=== PATIENT | female | born 1985 | race Caucasian/White ===

== ENCOUNTER 2022-03-14 08:46 | Outpatient (REF) | payer BC, SELFPAY ==
[2022-03-14 11:43] LABS: Mean Corpuscular HGB Conc 33.3 g/dl (31.0-35.0); Mean Corpuscular Hemoglobin 30.2 pg (27.0-33.0); Mean Corpuscular Volume 90.7 fL (80.0-98.0); Mean Platelet Volume 10.8 fL (9.4-12.3); Platelet Count 214 X10*3/uL (160-400); Red Cell Distribution Width 12.4 % (11.0-16.0); White Blood Count 4.8 X10*3/uL (4.8-10.8)
[2022-03-14 12:18] LABS: Alanine Aminotransferase 10 U/L (0-31); Albumin Level 4.3 g/dL (3.5-5.0); Alkaline Phosphatase 45 U/L (39-117); Anion Gap 14 (12-20); Aspartate Amino Transferase 15 U/L (5-31); Bilirubin Total 0.6 mg/dL (0.0-1.0); Blood Urea Nitrogen 15 mg/dL (9-16); Calcium 9.5 mg/dL (8.4-10.2); Carbon Dioxide 26 mmol/L (22-29); Chloride 105 mmol/L (96-108); Cholesterol 176 mg/dL; Estimated Glomerular Filt Rate > 60; Glucose Fasting 88 mg/dL (60-99); HDL Cholesterol 63 mg/dL; LDL Cholesterol Calculated 101 mg/dl; Potassium 4.6 mmol/L (3.3-5.1); Sodium 140 mmol/L (135-145); TSH reflex Free T4 1.32 uIU/mL (0.32-4.0); Total Protein 6.7 g/dL (6.5-8.0); Triglycerides 64 mg/dL
== END 2022-03-14 08:47 | disposition home or self-care (01) ==
LOC: HO.HMGCLDS 08:46
PROVIDERS: PCP Nurse Practitioner Family; Visit Provider Nurse Practitioner Family
DX: Z00.00 Encounter for general adult medical examination without abnormal findings (principal)
CPT/HCPCS: 36415; 80053; 80061; 84443; 85027

== ENCOUNTER 2022-06-23 09:28 | Outpatient (REF) | payer BC, SELFPAY ==
[2022-06-23 17:06] LABS: CT PCR NOT DETECTED (Not Detect.); NG PCR NOT DETECTED (Not Detect.)
[2022-06-24 11:40] LABS: BV Int Neg Control Negative (Negative); BV Int Pos Control Positive (Positive)
[2022-06-30 09:23] LABS: HPV mRNA E6/E7 rflx Not Detected (Not Detected)
== END 2022-06-23 09:29 | disposition home or self-care (01) ==
LOC: HO.LNP 09:28
PROVIDERS: PCP Nurse Practitioner Family; Visit Provider Advanced Practice Midwife
DX: Z01.419 Encounter for gynecological examination (general) (routine) without abnormal findings (principal); Z11.51 Encounter for screening for human papillomavirus (HPV); Z20.2 Contact with and (suspected) exposure to infections with a predominantly sexual mode of transmission
CPT/HCPCS: 0353U; 87480; 87510; 87624; 87660; 88142

== ENCOUNTER 2023-03-14 08:27 | Outpatient (AMB) | payer BC, SELFPAY ==
[2023-03-14 08:31] VITALS: BP 106/60; PULSE 71; RESP 13; TEMP 36.2; O2SAT 99; BMI 23.3
--- NOTE | 2023-03-14 08:31 | A.OFFPC_ITS ---
Vital Signs 03/14/23 08:31 Height 5 ft 1 in Weight 123 lb 2 oz BMI 23.3 BP 106/60 Blood Pressure Location Rt brachial Position Sitting Respiration 13 Pulse 71 Pulse Source Pulse Oximeter Temp 97.2 F Temp Source Temporal Artery Scan Pulse Oximetry (%) 99 Oxygen Delivery Method Room Air Intake Visit Reasons: CPE [place] Specialist Required: No Accompanied by: Self / Same As Patient Allergies No Known Allergies Allergy (Verified 03/14/23 08:38) N.K.D.A. Allergy (Unknown, Uncoded 03/14/23 08:38) Unknown Medication List - Last Reconciled 03/14/23 by Carmen Britt CNP No Known Home Meds Tobacco use date assessed: 03/14/23 Dental Screening Dental Screen Date: 03/14/23 Did you have a dental visit in the last 12 months?: Yes Did you have a dental problem in the last 6 months where you did not have access to dental care?: No Was dental information given to patient?: Patient has dentist HPI HPI Comments History of Present Illness Details 37-year-old female presents for an exten ded physical exam She has no significant past medical history She has not on prescription medications She reports significant anxiety symptoms. She notes that I have had anxiety my whole life. She worries a lot about her children and job performance. She feels overwhelmed with work and family life. She feels that her children may be better off if were . She became tearful during the interview. She denies suicidal or homicidal ideation or active suicide plan. She notes that she has reported anxiety symptoms to many doctors and was told her symptoms were normal. She has no history of counseling or taking psychotropic medications. She is never formally been diagnosed with anxiety or depression. 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 1. Little interest or pleasure in doing things: more than half the days 2. Feeling down, depressed, or hopeless: more than half the days 3. Trouble falling or staying asleep, or sleeping too much: nearly every day 4. Feeling tired or having little energy: nearly every day 5. Poor appetite or overeating: nearly every day 6. Feeling bad about yourself - or that you are a failure or have let yourself or your family down: nearly every day 7. Trouble concentrating on things, such as reading the newspaper or watching television: nearly every day 8. Moving or speaking so slowly that other people could have noticed. Or the opposite - being so fidgety or restless that you have been moving around a lot more than usual: nearly every day 9. Thoughts that you would be better off or of hurting yourself in some way: more than half the days Total score: 24 Depression Screening Interpretation: Positive Depression Screening Follow-up: New Medication prescribed and Community Mental Health Worker F/U Depression Screening Done: Yes 60986 - PHQ-9 Billing: Yes Source: Developed by Drs. Iban Potter, Geeta Chan, Jean Claude Richardson and colleagues, with an educational facundo from [employer]. Thrive Questionnaire Date Thrive assessed: 03/14/23 I am a: Patient What is your living situation today?: I have a steady place to live Within the past 12 months, did the food you bought not last and you didn't have the money to get more?: Never true Within the past 12 months, did you worry whether your food would run out before you got money to buy more?: Never true Do you have trouble paying for medicines?: No Do you have trouble getting transportation to medical appointments?: No Do you have trouble paying your heating and electricity bill?: No Do you have trouble taking care of your child, family member or friend?: No Do you have trouble with day-to-day activities such as bathing, preparing meals, shopping, managing finances, etc.?: No Are you currently unemployed and looking for a job?: No Are you interested in more education?: No Please select the resources that you would like help with: None Currently or been in a relationship where the following occur: no concerns reported THRIVE Score: 0 AUDIT C Alcohol Use Questionnaire (AUDIT-C) 1. How often do you have a drink containing alcohol?: Monthly or less 2. How many drinks containing alcohol do you have on a typical day when you are drinking?: 1 or 2 3. How often do you have six or more drinks on one occasion?: Never Total Score: 1 PEE-7 AMB Questionnaire PEE-7 Date PEE - 7 assessed: 03/14/23 Feeling nervous, anxious, or on edge: 3 = Nearly every day Not being able to stop or control worryin = Nearly every day Worrying too much about different things: 3 = Nearly every day Trouble relaxin = Nearly every day Being so restless that it is hard to sit still: 2 = More than half the days Becoming easily annoyed or irritable: 3 = Nearly every day Feeling afraid as if something awful might happen: 2 = More than half the days Total PEE-7 score (0-4 normal; 5-9 mild; 10-14 moderate; 15-21 severe): 19 Source: Developed by Drs. Iban Potter, Geeta Chan, Jean Claude Richardson and colleagues, with an educational facundo from [employer]. PEE-7 Assessment Billing PEE-7 Assessment Tool: PEE-7 Assessment 69902 Review of Systems Const Details: Const Denies chills, Denies fatigue, Denies fever(s), Denies headache(s) and Denies weakness ENT Denies dizziness and Denies headache(s) Card Denies chest pain, Denies lightheadedness, Denies dyspnea and Denies other (Palpitations) Resp Denies cough, Denies dyspnea, Denies wheezing and Denies other ( shortness of breath) GI Denies abdominal pain, Denies melena, Denies hematochezia, Denies change in bowel habits, Denies dyspepsia and Denies nausea Denies hematuria and Denies dysuria Musc Denies abnormal gait, Denies myalgias, Denies arthralgias, Denies numbness and Denies tingling Skin/Breast Denies rash, Denies unusual bruising and Denies wounds Neuro Denies abnormal gait, Denies dizziness, Denies headache(s), Denies memory loss, Denies numbness, Denies Sensory deficit (Neuro), Denies tingling and Denies weakness Psych Reports anxiety, Denies depression, Denies memory loss Endo Denies cold intolerance, Denies fatigue, Denies heat intolerance, Denies polydipsia and Denies polyuria Aller/Immun Denies wheezing Physical exam (Primary Care) Vital Signs: Last Vital Signs Temp 97.2 F 03/14/23 08:31 Pulse 71 03/14/23 08:31 Resp 13 03/14/23 08:31 BP 106/60 03/14/23 08:31 Pulse Ox 99 03/14/23 08:31 Oxygen Delivery Method Room Air 03/14/23 08:31 BMI result Body Mass Index 23.3 Tobacco/Smoking Status: Tobacco use Status Tobacco use date assessed 03/14/23 03/14/23 08:40 Patient Tobacco Use Status Former Tobacco user 03/14/23 08:40 Tobacco use type Cigarette 03/14/23 08:40 e-Cigarette/Vaping Use Never Used 03/14/23 08:40 PHQ-9: PHQ-9 Score PHQ-9: Total score 03/14/23 09:11 Depression Screening Interpretation: Positive Depression Screening Follow-up: New Medication prescribed and Community Mental Health Worker F/U Thrive Assessment: Date of Thrive Assessment Date Thrive assessed 03/14/23 03/14/23 08:40 Currently or been in a relationship where the following occur: no concerns reported Const Other: General: no acute distress and well developed Nutritional Appearance: well nourished Orientation/consciousness: patient oriented x3 HENMT Head: Yes normocephalic and Yes atraumatic Eyes General: appearance normal, both eyes and all related structures Pupils: Equal, round and reactive pupils present EOM: EOMs intact bilaterally Resp Effort & Inspection: normal respiratory effort Auscultation: clear to auscultation bilaterally Cardio Rate: regular rate Rhythm: regular rhythm Heart sounds: S1 normal heart sound present, S2 normal heart sound present, no gallops, no murmurs and no rubs GI Palpation (GI): No Abdominal aortic bruit present, Soft to palpation, nontender, No hepatosplenomegaly present and No Rebound tenderness present Auscultation: normal bowel sounds General: Yes no CVA tenderness Back/Spine/Pelvis Back: no CVA tenderness Cervical Spine: cervical ROM normal and No Cervical spine tenderness Thoracic/Lumbar Spine: thoraco-lumbar ROM normal, No pain with thoraco-lumbar ROM, No thoracic spinal tenderness and No lumbar spinal tenderness Extrem General: Yes normal to inspection, No edema and No calf tenderness Skin General: warm and dry. Normal skin color. Normal skin turgor Neuro General: patient oriented x3, gait normal and no focal neuro deficit Cranial nerves: Yes Equal, round and reactive pupils present Cognition (Neuro): normal cognition Gait exam (Neuro): Normal gait present Sensory Exam: No Sensory deficit (Neuro) Psych Appearance: grossly normal, tearful Affect: normal affect Speech: normal Attitude: cooperative Thought process: Normal thought process present Cognition: a+ox4 Assessment and Plan Assessment & Plan (1) Anxiety and depression: Code(s): F41.9 - Anxiety disorder, unspecified; F32.A - Depression, unspecified Plan: significant anxiety symptoms PHQ-9 and PEE-7 scores revealed severe depression and anxiety Fluoxetine 20 mg daily ordered. Take as prescribed Routine exercise encouraged She met with the community navigator who would refer her to a therapist Follow-up in 2 weeks or return sooner with worsening or new symptoms Advised to go to the ED with suicidal or homicidal ideation Verbalized understanding and agreed with treatment Complete physical exam deferred at this time (2) Laboratory tests ordered as part of a complete physical exam (CPE): Code(s): Z00.00 - Encounter for general adult medical examination without abnormal findings Plan: Fasting labs ordered in preparation of a complete physical exam. Advised to fast for at least 10 hours before getting labs drawn. May drink water Verbalized understanding and agreed with treatment plan. Orders: Orders Complete Blood Count Auto Diff Today Z00.00 - Encounter for general adult medical examination without abnormal findings Lipid Panel Today Z00.00 - Encounter for general adult medical examination without abnormal findings UA CC w/rflx Micro + Cult Today Z00.00 - Encounter for general adult medical examination without abnormal findings Comprehensive [place]. Panel Fast Today Z00.00 - Encounter for general adult medical examination without abnormal findings TSH reflex Free T4 Today Z00.00 - Encounter for general adult medical examination without abnormal findings Medications: New fluoxetine 20 mg PO DAILY 30 days 30 tabs 3RF Coding Level of Care Code Est Pt Level 4 (58905) Diagnoses Anxiety and depression F41.9; F32.A Laboratory tests ordered as part of a complete physical exam (CPE) Z00.00 Additional Codes PEE-7 Assessment Billing - PEE-7 Assessment Tool: PEE-7 Assessment 27575 ([id number])
== END 2023-03-14 09:17 | disposition home or self-care (01) ==
PROVIDERS: Visit Provider Nurse Practitioner Family
DX: F41.9 Anxiety disorder, unspecified (principal); F32.A Depression, unspecified
CPT/HCPCS: 96127; 99214

== ENCOUNTER 2023-03-28 16:13 | Outpatient (AMB) | payer BC, SELFPAY ==
[2023-03-28 16:17] VITALS: BP 108/60; PULSE 96; RESP 13; TEMP 36.4; O2SAT 99; BMI 23.1
--- NOTE | 2023-03-28 16:17 | A.OFFPC_ITS ---
Vital Signs 03/28/23 16:17 Height 5 ft 1 in Weight 122 lb 8 oz BMI 23.1 BP 108/60 Blood Pressure Location Rt brachial Position Sitting Respiration 13 Pulse 96 Pulse Source Pulse Oximeter Temp 97.6 F Temp Source Temporal Artery Scan Pulse Oximetry (%) 99 Oxygen Delivery Method Room Air Intake Visit Reasons: 2 wks anxiety, depression Line Up Examiner Required: No Accompanied by: Self / Same As Patient Allergies No Known Allergies Allergy (Verified 03/28/23 16:23) N.K.D.A. Allergy (Unknown, Uncoded 03/28/23 16:23) Unknown Medication List - Last Reconciled 03/28/23 by Carmen Britt CNP fluoxetine 20 mg PO DAILY 30 days Tobacco use date assessed: 03/14/23 Dental Screening Dental Screen Date: 03/28/23 Did you have a dental visit in the last 12 months?: Yes Did you have a dental problem in the last 6 months where you did not have access to dental care?: No Was dental information given to patient?: Patient has dentist HPI HPI Comments History of Present Illness Details 37-year-old female presents for anxiety and depression follow-up She was started on fluoxetine 2 weeks ago. She admits to taking her medication as prescribed without adverse reactions She notes she has not noticed and improvement with the fluoxetine. However, her symptoms have not worsened She states that she feels a little better now that she has a week break from school She notes that she has been walking at least twice weekly. 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 1. Little interest or pleasure in doing things: more than half the days 2. Feeling down, depressed, or hopeless: more than half the days 3. Trouble falling or staying asleep, or sleeping too much: nearly every day 4. Feeling tired or having little energy: nearly every day 5. Poor appetite or overeating: nearly every day 6. Feeling bad about yourself - or that you are a failure or have let yourself or your family down: nearly every day 7. Trouble concentrating on things, such as reading the newspaper or watching television: nearly every day 8. Moving or speaking so slowly that other people could have noticed. Or the opposite - being so fidgety or restless that you have been moving around a lot more than usual: not at all 9. Thoughts that you would be better off or of hurting yourself in some way: not at all Total score: 19 Depression Screening Interpretation: Positive Depression Screening Follow-up: Existing condition, In treatment and New Medication prescribed Depression Screening Done: Yes 07904 - PHQ-9 Billing: Yes Source: Developed by Drs. Iban Potter, Jean Claude Moss and colleagues, with an educational facundo from [employer]. Thrive Questionnaire Date Thrive assessed: 03/14/23 PEE-7 AMB Questionnaire PEE-7 Date PEE - 7 assessed: 03/28/23 Feeling nervous, anxious, or on edge: 2 = More than half the days Not being able to stop or control worryin = Nearly every day Worrying too much about different things: 2 = More than half the days Trouble relaxin = More than half the days Being so restless that it is hard to sit still: 1 = Several days Becoming easily annoyed or irritable: 3 = Nearly every day Feeling afraid as if something awful might happen: 3 = Nearly every day Total PEE-7 score (0-4 normal; 5-9 mild; 10-14 moderate; 15-21 severe): 16 Source: Developed by Drs. Iban Potter, Jean Claude Moss and colleagues, with an educational facundo from [employer]. Review of Systems Const Details: Const Denies chills, Denies fatigue, Denies fever(s), Denies headache(s) and Denies weakness ENT Denies dizziness and Denies headache(s) Card Denies chest pain, Denies lightheadedness, Denies dyspnea and Denies other (Palpitations) Resp Denies cough, Denies dyspnea, Denies wheezing and Denies other ( shortness of breath) GI Denies abdominal pain, Denies melena, Denies hematochezia, Denies change in bowel habits, Denies dyspepsia and Denies nausea Denies hematuria and Denies dysuria Musc Denies abnormal gait, Denies myalgias, Denies arthralgias, Denies numbness and Denies tingling Skin/Breast Denies rash, Denies unusual bruising and Denies wounds Neuro Denies abnormal gait, Denies dizziness, Denies headache(s), Denies memory loss, Denies numbness, Denies Sensory deficit (Neuro), Denies tingling and Denies weakness Psych Reports anxiety, Reports depression, Denies memory loss Endo Denies cold intolerance, Denies fatigue, Denies heat intolerance, Denies polydipsia and Denies polyuria Aller/Immun Denies wheezing Physical exam (Primary Care) Vital Signs: Last Vital Signs Temp 97.6 F 03/28/23 16:17 Pulse 96 03/28/23 16:17 Resp 13 03/28/23 16:17 BP 108/60 03/28/23 16:17 Pulse Ox 99 03/28/23 16:17 Oxygen Delivery Method Room Air 03/28/23 16:17 BMI result Body Mass Index 23.1 Tobacco/Smoking Status: Tobacco use Status Tobacco use date assessed 03/14/23 03/28/23 16:24 Patient Tobacco Use Status Former Tobacco user 03/28/23 16:24 Tobacco use type Cigarette 03/28/23 16:24 e-Cigarette/Vaping Use Never Used 03/28/23 16:24 PHQ-9: PHQ-9 Score PHQ-9: Total score 19 03/28/23 16:25 Depression Screening Interpretation: Positive Depression Screening Follow-up: Existing condition, In treatment and New Medication prescribed Thrive Assessment: Date of Thrive Assessment Date Thrive assessed 03/14/23 03/28/23 16:24 Const Other: General: no acute distress and well developed Nutritional Appearance: well nourished Orientation/consciousness: patient oriented x3 HENPA Head: Yes normocephalic and Yes atraumatic Eyes General: appearance normal, both eyes and all related structures Pupils: Equal, round and reactive pupils present EOM: EOMs intact bilaterally Resp Effort & Inspection: normal respiratory effort Auscultation: clear to auscultation bilaterally Cardio Rate: regular rate Rhythm: regular rhythm Heart sounds: S1 normal heart sound present, S2 normal heart sound present, no gallops, no murmurs and no rubs GI Palpation (GI): No Abdominal aortic bruit present, Soft to palpation, nontender, No hepatosplenomegaly present and No Rebound tenderness present Auscultation: normal bowel sounds General: Yes no CVA tenderness Back/Spine/Pelvis Back: no CVA tenderness Cervical Spine: cervical ROM normal and No Cervical spine tenderness Thoracic/Lumbar Spine: thoraco-lumbar ROM normal, No pain with thoraco-lumbar ROM, No thoracic spinal tenderness and No lumbar spinal tenderness Extrem General: Yes normal to inspection, No edema and No calf tenderness Skin General: warm and dry. Normal skin color. Normal skin turgor Neuro General: patient oriented x3, gait normal and no focal neuro deficit Cranial nerves: Yes Equal, round and reactive pupils present Cognition (Neuro): normal cognition Gait exam (Neuro): Normal gait present Sensory Exam: No Sensory deficit (Neuro) Psych Appearance: grossly normal Affect: normal affect Attitude: cooperative Thought process: Normal thought process present Assessment and Plan Assessment & Plan (1) Anxiety and depression: Code(s): F41.9 - Anxiety disorder, unspecified; F32.A - Depression, unspecified Plan: No improvement or worsening of symptoms with current treatment regimen PHQ-9 and PEE-7 scores revealed moderately severe depression and severe anxiety respectively Buspirone 7.5 mg twice daily ordered. Take as prescribed Continue to take fluoxetine 20 mg daily Routine exercise encouraged Follow-up in 2 weeks or return sooner with worsening or new symptoms Verbalized understanding and agreed with treatment plan Medications: New buspirone 7.5 mg PO BID 30 days 60 tabs 2RF Coding Level of Care Code Est Pt Level 3 (98581) Diagnoses Anxiety and depression F41.9; F32.A
== END 2023-03-28 16:40 | disposition home or self-care (01) ==
PROVIDERS: PCP Nurse Practitioner Family; Visit Provider Nurse Practitioner Family
DX: F41.9 Anxiety disorder, unspecified (principal); F32.A Depression, unspecified
CPT/HCPCS: 99213

== ENCOUNTER 2023-03-29 07:04 | Outpatient (REF) | payer BC, SELFPAY ==
[2023-03-29 11:15] LABS: MANUAL DIFF FLAG NO
[2023-03-29 11:23] LABS: Appearance Urine Turbid; Color Urine Yellow; Glucose Urine UA Negative (Negative); Leukocyte Esterase Urine Trace (Negative); Nitrite Urine Negative (Negative); PH 5.5 (5.0-9.0); Specific Gravity - Urine 1.025 (1.005-1.025); UMIC TRIGGER UACC YES; Urine Blood Negative (Negative); Urine Ketones Negative (Negative); Urine Protein Negative (Neg-Trace)
[2023-03-29 11:28] LABS: Basophils Percent Auto 0.9 % (0-2); Eosinophils Absolute Auto 0.1 X10*3/uL (0.0-0.4); Eosinophils Percent Auto 1.1 % (0-4); Hematocrit 38.8 % (37.0-47.0); Hemoglobin 12.8 g/dl (12.0-16.0); Imm Gran Abs Auto 0.01 X10*3/uL (0.00-0.03); Imm Gran Pct Auto 0.2 % (0.0-0.4); Lymphocytes Absolute Auto 1.3 X10*3/uL (1.2-4.9); Lymphocytes Percent Auto 27.7 % (20-40); Mean Corpuscular Volume 90.9 fL (80.0-98.0); Mean Platelet Volume 10.5 fL (9.4-12.3); Monocytes Absolute Auto 0.3 X10*3/uL (0.1-1.2); Neutrophils Percent Auto 64.1 % (45-73); Platelet Count 213 X10*3/uL (160-400); Red Blood Count 4.27 X10*6/uL (4.20-5.50); Red Cell Distribution Width 12.3 % (11.0-16.0); White Blood Count 4.7 X10*3/uL (4.8-10.8)
[2023-03-29 11:35] LABS: Bacteria Urine None Seen (None Seen); Hyaline Casts Urine 0-2 /LPF (0-2); WBC Urine 0-5 /HPF (0-5)
[2023-03-29 11:36] LABS: RBC Urine 0-2 /HPF (0-2)
[2023-03-29 11:41] LABS: Alanine Aminotransferase 9 U/L (0-31); Albumin Level 3.9 g/dL (3.5-5.0); Alkaline Phosphatase 42 U/L (39-117); Anion Gap 10 (12-20); Aspartate Amino Transferase 13 U/L (5-31); Bilirubin Total 0.4 mg/dL (0.0-1.0); Blood Urea Nitrogen 16 mg/dL (9-16); Calcium 8.9 mg/dL (8.4-10.2); Carbon Dioxide 28 mmol/L (22-29); Chloride 107 mmol/L (96-108); Cholesterol 172 mg/dL (<200); Estimated Glomerular Filt Rate > 60; Glucose Fasting 97 mg/dL (60-99); HDL Cholesterol 65 mg/dL (>40); LDL Cholesterol Calculated 98 mg/dL (<100); Potassium 4.2 mmol/L (3.3-5.1); Sodium 141 mmol/L (135-145); Total Protein 6.5 g/dL (6.5-8.0); Triglycerides 49 mg/dL (<150)
[2023-03-29 12:00] LABS: TSH reflex Free T4 1.62 uIU/mL (0.32-4.0)
== END 2023-03-29 07:05 | disposition home or self-care (01) ==
LOC: HO.HMGCLDS 07:04
PROVIDERS: PCP Nurse Practitioner Family; Visit Provider Nurse Practitioner Family
DX: Z00.00 Encounter for general adult medical examination without abnormal findings (principal)
CPT/HCPCS: 36415; 80053; 80061; 81001; 84443; 85025

== ENCOUNTER 2023-04-06 08:41 | Outpatient (AMB) | payer BC, SELFPAY ==
--- NOTE | 2023-04-06 09:18 | AM.OFFWIN_ITS ---
Intake Vital Signs 04/06/23 09:19 Weight 122 lb BP 100/68 Blood Pressure Location Lt brachial Position Sitting Pulse 54 Pulse Source Pulse Oximeter Pulse Oximetry (%) 99 Oxygen Delivery Method Room Air Intake Visit Reasons: EP LT eye ?[place] Intake Note: Patient here for possible pink eye of left eye, pt states she woke up today with it discharge in eye. Patient Tobacco Use Status: Former Tobacco user Allergies No Known Allergies Allergy (Verified 04/06/23 09:20) N.K.D.A. Allergy (Unknown, Uncoded 04/06/23 09:20) Unknown Do you need a note to return to daycare/school/sports/work: Yes HPI HPI Comments History of Present Illness Details 37 y/o female patient who [facility] clinic with c/o Left eye itching and red since this morining. Pt reports waking this AM with left eye discharge, that was white and crusty. Does not wear contacts. Denies vision changes. Denies light sensitivity. Denies URI symptoms. 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[employer] Cognitive needs: No Hearing needs: No Vision needs: No Female Reproductive History Menstrual Age of Menarche: 15 Review of Systems Const All systems reviewed & are unremarkable except as noted in HPI and below Physical Exam Vital Signs: Last Vital Signs Pulse 54 04/06/23 09:19 BP 100/68 04/06/23 09:19 Pulse Ox 99 04/06/23 09:19 Oxygen Delivery Method Room Air 04/06/23 09:19 Const General: comfortable and no acute distress Eyes Visual [place]: normal visual [place] by confrontation Periorbital: periorbital findings normal Eyelids: Yes eyelids normal Conjunctivae: conjunctivae normal Pupils: Equal, round and reactive pupils present EOM: EOMs intact bilaterally Direct Ophthalmoscopy: normal light reflex Neuro Cranial nerves: Yes Equal, round and reactive pupils present Assessment & Plan Assessment & Plan (1) Eye irritation: Code(s): H57.89 - Other specified disorders of eye and adnexa Plan: - Normal eye examination - Visioon normal no changes - Keep eyes clean - Wash hands frequently. Coding Level of Care Code Est Pt Level 3 (73507) Diagnoses Eye irritation H57.89 Time Spent (min) 10
[2023-04-06 09:19] VITALS: BP 100/68; PULSE 54; O2SAT 99
== END 2023-04-06 10:35 | disposition home or self-care (01) ==
PROVIDERS: PCP Nurse Practitioner Family; Visit Provider Nurse Practitioner Family
DX: H57.89 Other specified disorders of eye and adnexa (principal)
CPT/HCPCS: 99213

== ENCOUNTER 2023-04-11 16:40 | Outpatient (AMB) | payer BC, SELFPAY ==
[2023-04-11 16:43] VITALS: BP 104/60; PULSE 85; RESP 13; TEMP 36.1; O2SAT 99; BMI 23.7
--- NOTE | 2023-04-11 16:43 | A.OFFPC_ITS ---
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 Allergy (Unknown, Uncoded 04/11/23 17:05) Unknown Medication List - Last Reconciled 04/11/23 by Carmen Britt CNP buspirone 7.5 mg PO BID 30 days fluoxetine 20 mg PO DAILY 30 days Tobacco use date assessed: 03/14/23 Dental Screening Dental Screen Date: 04/11/23 Did you have a dental visit in the last 12 months?: Yes Did you have a dental problem in the last 6 months where you did not have access to dental care?: No Was dental information given to patient?: Patient has dentist HPI HPI Comments History of Present Illness Details 37-year-old female presents for anxiety and depression follow-up Buspirone was added to her treatment at her last visit. She admits to taking her medication as prescribed without adverse reactions She reports significant improvement with current treatment regimen. She notes that she no longer feel overwhelmed and for the first time she is down able to do things she enjoys She notes that she has been walking at least twice weekly. 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 1. Little interest or pleasure in doing things: several days 2. Feeling down, depressed, or hopeless: several days 3. Trouble falling or staying asleep, or sleeping too much: more than half the days 4. Feeling tired or having little energy: more than half the days 5. Poor appetite or overeating: more than half the days 6. Feeling bad about yourself - or that you are a failure or have let yourself or your family down: several days 7. Trouble concentrating on things, such as reading the newspaper or watching television: more than half the days 8. Moving or speaking so slowly that other people could have noticed. Or the opposite - being so fidgety or restless that you have been moving around a lot more than usual: not at all 9. Thoughts that you would be better off or of hurting yourself in some way: not at all Total score: 11 Depression Screening Interpretation: Positive Depression Screening Follow-up: Existing condition and In treatment Depression Screening Done: Yes 33066 - PHQ-9 Billing: Yes Source: Developed by Drs. Iban Potter, Geeta Chan, Jean Claude Richardson and colleagues, with an educational facundo from [employer]. Thrive Questionnaire Date Thrive assessed: 03/14/23 PEE-7 AMB Questionnaire PEE-7 Date PEE - 7 assessed: 04/11/23 Feeling nervous, anxious, or on edge: 2 = More than half the days Not being able to stop or control worryin = More than half the days Worrying too much about different things: 2 = More than half the days Trouble relaxin = Several days Being so restless that it is hard to sit still: 1 = Several days Becoming easily annoyed or irritable: 2 = More than half the days Feeling afraid as if something awful might happen: 1 = Several days Total PEE-7 score (0-4 normal; 5-9 mild; 10-14 moderate; 15-21 severe): 11 Source: Developed by Drs. Iban LGeeta Swartz, Jean Claude Richardson and colleagues, with an educational facundo from [employer]. PEE-7 Assessment Billing PEE-7 Assessment Tool: PEE-7 Assessment [id number] Review of Systems Const Details: Const Denies chills, Denies fatigue, Denies fever(s), Denies headache(s) and Denies weakness ENT Denies dizziness and Denies headache(s) Card Denies chest pain, Denies lightheadedness, Denies dyspnea and Denies other (Palpitations) Resp Denies cough, Denies dyspnea, Denies wheezing and Denies other ( shortness of breath) GI Denies abdominal pain, Denies melena, Denies hematochezia, Denies change in bowel habits, Denies dyspepsia and Denies nausea Denies hematuria and Denies dysuria Musc Denies abnormal gait, Denies myalgias, Denies arthralgias, Denies numbness and Denies tingling Skin/Breast Denies rash, Denies unusual bruising and Denies wounds Neuro Denies abnormal gait, Denies dizziness, Denies headache(s), Denies memory loss, Denies numbness, Denies Sensory deficit (Neuro), Denies tingling and Denies weakness Psych Denies anxiety, Denies depression, Denies memory loss Endo Denies cold intolerance, Denies fatigue, Denies heat intolerance, Denies polydipsia and Denies polyuria Aller/Immun Denies wheezing Physical exam (Primary Care) Vital Signs: Last Vital Signs Temp 97 F 04/11/23 16:43 Pulse 85 04/11/23 16:43 Resp 13 04/11/23 16:43 BP 104/60 04/11/23 16:43 Pulse Ox 99 04/11/23 16:43 Oxygen Delivery Method Room Air 04/11/23 16:43 BMI result Body Mass Index 23.7 Tobacco/Smoking Status: Tobacco use Status Tobacco use date assessed 03/14/23 04/11/23 16:50 Patient Tobacco Use Status Former Tobacco user 04/11/23 16:50 Tobacco use type Cigarette 04/11/23 16:50 e-Cigarette/Vaping Use Never Used 04/11/23 16:50 PHQ-9: PHQ-9 Score PHQ-9: Total score 11 04/11/23 16:50 Depression Screening Interpretation: Positive Depression Screening Follow-up: Existing condition and In treatment Thrive Assessment: Date of Thrive Assessment Date Thrive assessed 03/14/23 04/11/23 16:50 Const Other: General: no acute distress and well developed Nutritional Appearance: well nourished Orientation/consciousness: patient oriented x3 [facility] [place] Head: Yes normocephalic and Yes atraumatic Eyes General: appearance normal, both eyes and all related structures Pupils: Equal, round and reactive pupils present EOM: EOMs intact bilaterally Resp Effort & Inspection: normal respiratory effort Auscultation: clear to auscultation bilaterally Cardio Rate: regular rate Rhythm: regular rhythm Heart sounds: S1 normal heart sound present, S2 normal heart sound present, no gallops, no murmurs and no rubs GI Palpation (GI): No Abdominal aortic bruit present, Soft to palpation, nontender, No hepatosplenomegaly present and No Rebound tenderness present Auscultation: normal bowel sounds General: Yes no CVA tenderness Back/Spine/Pelvis Back: no CVA tenderness Cervical Spine: cervical ROM normal and No Cervical spine tenderness Thoracic/Lumbar Spine: thoraco-lumbar ROM normal, No pain with thoraco-lumbar ROM, No thoracic spinal tenderness and No lumbar spinal tenderness Extrem General: Yes normal to inspection, No edema and No calf tenderness Skin General: warm and dry. Normal skin color. Normal skin turgor Lesions: no lesions Rashes: no rashes Trauma: no lacerations or abrasions Wounds: no wounds Nails: normal Neuro General: patient oriented x3, gait normal and no focal neuro deficit Cranial nerves: Yes Equal, round and reactive pupils present Cognition (Neuro): normal cognition Gait exam (Neuro): Normal gait present Sensory Exam: No Sensory deficit (Neuro) Psych Appearance: grossly normal Affect: normal affect Attitude: cooperative Thought process: Normal thought process present Assessment and Plan Assessment & Plan (1) Anxiety and depression: Code(s): F41.9 - Anxiety disorder, unspecified; F32.A - Depression, unspecified Plan: Reports controlled anxiety and depression symptoms on current treatment regimen PHQ-9 and PEE-7 scores revealed moderate depression and anxiety Continue current treatment regimen Routine exercise encouraged Follow-up in 1 month for an extended physical exam, anxiety, and depression Return sooner with worsening or new symptoms Verbalized understanding and agreed with treatment plan Coding Level of Care Code Est Pt Level 3 (65043) Diagnoses Anxiety and depression F41.9; F32.A Additional Codes PEE-7 Assessment Billing - PEE-7 Assessment Tool: PEE-7 Assessment [id number] ([id number])
== END 2023-04-11 17:22 | disposition home or self-care (01) ==
PROVIDERS: PCP Nurse Practitioner Family; Visit Provider Nurse Practitioner Family
DX: F41.9 Anxiety disorder, unspecified (principal); F32.A Depression, unspecified
CPT/HCPCS: 99213

== ENCOUNTER 2023-06-16 15:37 | Outpatient (AMB) | payer BC, SELFPAY ==
--- NOTE | 2023-06-16 15:44 | A.OFFPC_ITS ---
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 Allergy (Unknown, Uncoded 06/16/23 15:53) Unknown Medication List - Last Reconciled 06/16/23 by Carmen Britt CNP buspirone 7.5 mg PO BID 30 days fluoxetine 20 mg PO DAILY 30 days Tobacco use date assessed: 06/16/23 Dental Screening Dental Screen Date: 04/11/23 HPI HPI Comments History of Present Illness Details 37-year-old female presents for an exten ded physical exam and anxiety and depression follow-up She admits to taking fluoxetine and buspirone as prescribed without adverse reactions She reports controlled anxiety and depression symptoms She offers no complaints and denies acute symptoms at this time She admits to making healthy dietary changes, including healthy diet and home workout 4 days weekly Last pap smear test was on 06/28/2022: normal Nonsmoker, drinks alcohol occasionally, no recreational drugs [facility] Medical History No pertinent past medical history Surgical History No pertinent past surgical history Family History Other Mental health disorder Substance abuse Social History Housing: House Patient Tobacco Use Status: Former Tobacco user Tobacco use type: Cigarette Cigarette Packs Per Day: 0.2 Cigarettes Per Day: 5 Years Smoked: .5 e-Cigarette/Vaping Use: Never Used service: No Current occupational status: employed 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 1. Little interest or pleasure in doing things: not at all 2. Feeling down, depressed, or hopeless: not at all 3. Trouble falling or staying asleep, or sleeping too much: several days 4. Feeling tired or having little energy: several days 5. Poor appetite or overeating: several days 6. Feeling bad about yourself - or that you are a failure or have let yourself or your family down: several days 7. Trouble concentrating on things, such as reading the newspaper or watching television: several days 8. Moving or speaking so slowly that other people could have noticed. Or the opposite - being so fidgety or restless that you have been moving around a lot more than usual: not at all 9. Thoughts that you would be better off or of hurting yourself in some way: not at all Total score: 5 Depression Screening Interpretation: Positive Depression Screening Follow-up: Existing condition and In treatment Depression Screening Done: Yes 09767 - PHQ-9 Billing: Yes Source: Developed by Drs. Iban Potter, Geeta Chan, Jean Claude Richardson and colleagues, with an educational facundo from [employer]. Thrive Questionnaire Date Thrive assessed: 03/14/23 AUDIT C Alcohol Use Questionnaire (AUDIT-C) 1. How often do you have a drink containing alcohol?: Monthly or less 2. How many drinks containing alcohol do you have on a typical day when you are drinking?: 1 or 2 3. How often do you have six or more drinks on one occasion?: Never Total Score: 1 PEE-7 AMB Questionnaire PEE-7 Date PEE - 7 assessed: 06/16/23 Feeling nervous, anxious, or on edge: 1 = Several days Not being able to stop or control worryin = Several days Worrying too much about different things: 1 = Several days Trouble relaxin = Several days Being so restless that it is hard to sit still: 0 = Not at all Becoming easily annoyed or irritable: 1 = Several days Feeling afraid as if something awful might happen: 0 = Not at all Total PEE-7 score (0-4 normal; 5-9 mild; 10-14 moderate; 15-21 severe): 5 Source: Developed by Drs. Iban Potter, Geeta Chan, Jean Claude Richardson and colleagues, with an educational facundo from [employer]. PEE-7 Assessment Billing PEE-7 Assessment Tool: PEE-7 Assessment 88125 Review of Systems Const Details: Denies chills, Denies fatigue, Denies fever(s), Denies headache(s) and Denies weakness HEENT Denies change in vision, Denies dizziness, Denies headache(s), Denies hearing loss, Denies nasal congestion, Denies sinus pain, Denies sinus pressure and Denies sore throat Card Denies chest pain, Denies lightheadedness, Denies dyspnea and Denies other (palpitations) Resp Denies cough, Denies dyspnea and Denies wheezing GI Denies abdominal pain, Denies melena, Denies hematochezia, Denies change in bowel habits, Denies dyspepsia and Denies nausea Denies hematuria and Denies dysuria Musc Denies abnormal gait, Denies myalgias, Denies arthralgias, Denies numbness and Denies tingling Skin/Breast Denies rash, Denies unusual bruising and Denies wounds Neuro Denies abnormal gait, Denies dizziness, Denies headache(s), Denies memory loss, Denies numbness, Denies Sensory deficit (Neuro), Denies tingling and Denies weakness Psych Denies anxiety, Denies depression and Denies memory loss Endo Denies cold intolerance, Denies fatigue, Denies heat intolerance, Denies polydipsia and Denies polyuria Shaw/Lymph Denies easy bleeding and Denies easy bruising Aller/Immun Denies wheezing Physical exam (Primary Care) Tobacco/Smoking Status: Tobacco use Status Tobacco use date assessed 03/14/23 06/16/23 15:45 Patient Tobacco Use Status Former Tobacco user 06/16/23 15:45 Tobacco use type Cigarette 06/16/23 15:45 e-Cigarette/Vaping Use Never Used 06/16/23 15:45 Depression Screening Interpretation: Positive Depression Screening Follow-up: Existing condition and In treatment Thrive Assessment: Date of Thrive Assessment Date Thrive assessed 03/14/23 06/16/23 15:45 Const Other: General: no acute distress, well developed, alert and awake Nutritional Appearance: well nourished Orientation/consciousness: patient oriented x3 [facility] Head: Yes normocephalic and Yes atraumatic Ears: hearing grossly normal bilaterally and TM's normal bilaterally General nose exam: Normal external nose present and Normal nares present Mouth: Normal oral and palatal mucosa present and moist mucous membranes Teeth and gingiva: dentition normal Throat: Yes oropharynx normal Eyes Pupils: Equal, round and reactive pupils present and Pupil accommodation reflex normal EOM: EOMs intact bilaterally Neck Neck: Yes normal visual inspection, Yes no lymphadenopathy and Yes trachea midline Thyroid: Thyroid normal Carotids: no bruits Lymphatic: no lymphadenopathy noted Chest Chest palpation & inspection: normal inspection of the chest Resp Effort & Inspection: normal respiratory effort Auscultation: clear to auscultation bilaterally Cardio Rate: regular rate Rhythm: regular rhythm Heart sounds: S1 normal heart sound present, S2 normal heart sound present, no gallops, no murmurs and no rubs Bruits: no abdominal aortic bruits and no carotid bruits GI Palpation (GI): No Abdominal aortic bruit present, Soft to palpation, nontender, No hepatosplenomegaly present and No Rebound tenderness present Auscultation: normal bowel sounds General: Yes no CVA tenderness Back/Spine/Pelvis Back: no CVA tenderness Cervical Spine: cervical ROM normal and No Cervical spine tenderness Thoracic/Lumbar Spine: thoraco-lumbar ROM normal, No pain with thoraco-lumbar ROM, No thoracic spinal tenderness and No lumbar spinal tenderness Skin General: warm and dry. Normal skin color. Normal skin turgor Lesions: no lesions Rashes: no rashes Trauma: no lacerations or abrasions Wounds: no wounds Nails: normal Neuro General: patient oriented x3, gait normal and CN's II-XI intact bilaterally Cranial nerves: Yes Equal, round and reactive pupils present Cognition (Neuro): normal cognition Gait exam (Neuro): Normal gait present Motor exam (neuro): 5/5 motor strength present throughout Sensory Exam: No Sensory deficit (Neuro) Deep tendon reflexes (DTR's): Right patellar reflex intensity grade: 2+ and Left patellar reflex intensity grade: 2+ Extrem General: Yes normal to inspection, No edema and No calf tenderness Psych Appearance: grossly normal Affect: normal affect Attitude: cooperative Thought process: Normal thought process present Assessment and Plan Assessment & Plan (1) Physical exam, annual: Code(s): Z00.00 - Encounter for general adult medical examination without abnormal findings Plan: Normal physical exam of a 37-year-old female No significant physical restrictions or limitations noted Continue current treatment regimen Healthy diet and routine exercise encouraged Follow-up in 3 months for anxiety and depression or return sooner with symptoms or concerns Verbalized understanding and agreed with treatment plan (2) Anxiety and depression: Code(s): F41.9 - Anxiety disorder, unspecified; F32.A - Depression, unspecified Plan: Reports controlled anxiety and depression symptoms PHQ-9 and PEE-7 scores revealed mild depression and anxiety Continue current treatment regimen Routine exercise encouraged Follow-up in 3 months or return sooner with symptoms or concerns Verbalized understanding and agreed with treatment plan Medications: Refilled fluoxetine 20 mg PO DAILY 30 days 30 tabs 3RF buspirone 7.5 mg PO BID 30 days 60 tabs 3RF Coding Level of Care Code Est Pt Level 4 (34105) Est Pt Prev Care 18-39y(36123) Diagnoses Physical exam, annual Z00.00 Anxiety and depression F41.9; F32.A Additional Codes PEE-7 Assessment Billing - PEE-7 Assessment Tool: PEE-7 Assessment [id number] ([id number])
[2023-06-16 15:47] VITALS: BP 102/52; PULSE 84; RESP 14; TEMP 36.8; BMI 23.9
== END 2023-06-16 16:08 | disposition home or self-care (01) ==
PROVIDERS: PCP Nurse Practitioner Family; Visit Provider Nurse Practitioner Family
DX: Z00.00 Encounter for general adult medical examination without abnormal findings (principal); F41.9 Anxiety disorder, unspecified; F32.A Depression, unspecified
CPT/HCPCS: 99395

== ENCOUNTER 2023-09-04 11:27 | Outpatient (REF) | payer BC, SELFPAY ==
[2023-09-05 05:17] LABS: CT PCR NOT DETECTED (Not Detect.); NG PCR NOT DETECTED (Not Detect.)
[2023-09-05 10:48] LABS: Bacterial Vaginosis PCR POSITIVE (Negative); Candida Group PCR NOT DETECTED (Not Detect); Candida glab krusei PCR NOT DETECTED (Not Detect); Trichomonas vaginalis PCR NOT DETECTED (Not Detect)
== END 2023-09-04 11:28 | disposition home or self-care (01) ==
LOC: HO.LAB 11:27
PROVIDERS: PCP Nurse Practitioner Family; Visit Provider Advanced Practice Midwife
DX: N89.8 Other specified noninflammatory disorders of vagina (principal); Z20.2 Contact with and (suspected) exposure to infections with a predominantly sexual mode of transmission
CPT/HCPCS: 0352U; 87491; 87591

== ENCOUNTER 2023-09-04 11:27 | Outpatient (AMB) | payer BC, SELFPAY ==
[2023-09-04 11:30] VITALS: BP 110/60; BMI 22.5
--- NOTE | 2023-09-04 11:30 | MHC.OFFVIS ---
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 Currently she has been using either condoms or timing intercourse very carefully to her awareness of ovulation and avoiding it. Her symptoms are not exactly classical but she follows it very carefully in his very attuned to her body and her cycles throughout her childbearing journey so she is very aware she gets symptoms that are slightly almost premenstrual in terms of emotional lability breast changes and bloating as well and her discharge is more thick and white around ovulation which is not exactly class she does also experience some increased libido at that time. She was on the ring and control pills in the past and also her the Mirena time with each of them she did experience some hormonal changes and also she had some discomfort with the Mirena after the 1st couple of years and she felt like sometime she could just feel it inside. She is not interested in anything that would have higher estrogen in it because of side effects in the past. She sees her primary care provider and says they decided recently to address some issues with anxiety and depression and she is on fluoxetine and buspirone. She was awaiting a therapy referral as well and my enquiring about that reminded her that nothing is happened with that yet [facility] Medical History No pertinent past medical history Surgical History No pertinent past surgical history Family History Other Mental health disorder Substance abuse Social History Housing: House Patient Tobacco Use Status: Former Tobacco user Tobacco use type: Cigarette Cigarette Packs Per Day: 0.2 Cigarettes Per Day: 5 Years Smoked: .5 e-Cigarette/Vaping Use: Never Used service: No Current occupational status: employed 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 Current occupational exposures/hazards: No Cognitive needs: No Hearing needs: No Vision needs: No Female Reproductive History Menstrual Age of Menarche: 15 Duration of menses: 3-5 days Date of last menstrual period: 08/24/23 control method: none Total pregnancies: 4 Full term: 3 Date of last pap smear: 06/28/22 (neg.) History of abnormal pap smear: No Physical Exam Vital Signs: Last Vital Signs BP 110/60 09/04/23 11:30 BMI result Body Mass Index 22.5 Const General: healthy appearing, comfortable, no acute distress, well developed and alert Nutritional Appearance: average body habitus Orientation/consciousness: patient oriented x3 Limitations: no limitations HEENT Head: Yes normocephalic Neck Neck: Yes normal visual inspection Chest Chest palpation & inspection: normal inspection of the chest Breast/axilla inspection: normal inspection of the breasts and normal inspection of the axillae Breast/axilla palpation: normal palpation of the breasts and normal palpation of the axillae Resp Effort & Inspection: normal respiratory effort GI Inspection: Yes normal to inspection, No Abdominal wall edema and No distended Palpation (GI): Soft to palpation and nontender Other: External exam within limits vagina pink and moist with clear whitish discharge. Cervix is multiparous with ectropion which did bleed with placement of speculum cervix is markedly anterior long close thick mobile nontender uterus is small retroverted completely and vertical in axis. Small mobile nontender adnexa nontender good tone with Kegel. General: Yes bladder normal to palpation External Female Exam: normal external appearance and normal appearance of the urethra Speculum Exam - Vagina: normal appearance of the vagina, normal palpation and normal vaginal discharge Speculum Exam - Cervix: normal appearance of the cervix, normal palpation and nontender Bimanual exam- vagina & uterus: normal bimanual exam, normal palpation, uterine size normal, bladder normal to palpation, consistency normal, normal palpation, uterine mobility normal, uterine shape normal, No Cervical tenderness present, non-tender and no cervical motion tenderness Bimanual Exam- Adnexa, other: normal adnexae, no masses, normal and No adnexal tenderness Neuro General: patient oriented x3 Results Reviewed Results Reviewed: Name: Marsha Cedeno Age/Sex: 36/F Attending: Emelia Jade CNM : 1985 Submitted by: Emelia Jade CNM Copies to: Carmen Britt CNP MR #: [id number] Status: DEP REF Collected: 06/23/22 Location: [facility] Received: 06/28/22 Interpretation Satisfactory for evaluation. Mild inflammation. Negative for intraepithelial lesion or malignancy. HPV mRNA E6/E7: NOT DETECTED This assay detects E6/E7 viral messenger RNA (mRNA) from 14 high-risk HPV types (16, 18, 31, 33, 35, 39, 45, 51, 52, 56, 58, 59, 66, 68) HPV testing performed by [facility], [place], [place]. See reference laboratory pion of the EMR for entire report. Clinical Information LMP: 06/01/22 Previous PAP test: Unknown date/findings Material Received ThinPrep-Cervical Copies To Emelia Jade [address] [place] [address] Carmen Britt MANAGER WOUND CARE [address] [place] [address] [email or web address] Electronically Signed By: EVANGELIST Braden ([facility]) 07/08/22 2486 The Pap Test is a screening procedure with the inherent possibility of both false negative and false positive results. Results should be interpreted in the context of historic and current clinical findings. Reliability of the Pap Test is enhanced by performing the test on a regular repetitive basis. Patient: Marsha Cedeno Age/Sex: 36/F MR#: [id number] Page 1 of 1 Assessment & Plan Assessment & Plan (1) Anxiety and depression: Code(s): F41.9 - Anxiety disorder, unspecified; F32.A - Depression, unspecified Category: Medical (2) Well woman exam with routine gynecological exam: Code(s): Z01.419 - Encounter for gynecological examination (general) (routine) without abnormal findings Category: Medical (3) Pap smear for cervical cancer screening: Comment: Pap done 06/23/2022 cervix notable for ectropion and bled easily with blade of speculum so cultures done.-06/23/2022 Pap is negative with negative HPV. Code(s): Z12.4 - Encounter for screening for malignant neoplasm of cervix Category: Medical (4) Counseling for initiation of control method: Code(s): Z30.09 - Encounter for other general counseling and advice on contraception Category: Medical Plan -----Discussed in this visit the following: healthy balanced diet, regular and consistent exercise, getting recommended health screens, doing the best she can for her particular health concerns, kegel exercises, pap smear screening and followup recommendations, mammography screening and SBE, normal changes in cycles in her life stage--- .-I reviewed with the patient, all of the currently common used methods of control that are available. We reviewed how they work in the body, how they are taken, common side effects, uncommon side effects, precautions, and contraindications. -Discussed also factors that influence their effectiveness and use, and womens satisfaction with the method. -Discussed how each are used, and drawbacks of each method as well. -Methods covered included: condoms, control pills, control patches, control rings, Depo-Provera, Nexplanon, Mirena and and ParaGard IUDs. All of the above methods were covered in great detail including their side effect profiles and common experiences that women have and ways to mitigate against the negative experiences including attention to diet and exercise patient's with bleeding challenges that may occur her and efforts to time the initiation of the method to this start of the menstrual period Discussed that given her particular sensitivities to hormones and her previous experience of IUDs and there being no perfect method the options that would most likely be available to her would include a Mirena IUD again a ParaGard IUD with no hormones or progestin only control pills. She decided she would like to try the pills she will think about whether not she might want an IUD in future. She believes she has an appointment with her primary care provider coming up in the next few months given this and given that progestin only pills are unlikely to affect her blood pressure much we can dispense with her 3 month follow-up visit. Given her recent start on the medications for anxiety and depression and because of the hormonal effects of control on anxiety and depression but also hormonal effects of cyclic changes I asked her to be especially attentive to how she feels. She is very attuned to how she feels hormonally so she is very well equipped and will let us know if is a negative effect. If she is happy on the pills she can stay on them for the next year see her then if she is not I also discussed the options for both IUDs and how they would need to be started with her period and that the ParaGard IUD would require signing of the insurance form had a time and planning. I recommend she start these pills on the 1st day of her next period discussed using backup method if she ever forgets a pill for at least [address] she is safe and protected from risk of by any lapses. Medications: New norethindrone (contraceptive) 0.35 mg PO DAILY 84 tabs 3RF Coding Level of Care Code Est Pt Prev Care 18-39y(45163) Diagnoses Anxiety and depression F41.9; F32.A Well woman exam with routine gynecological exam Z01.419 Pap smear for cervical cancer screening Z12.4 Counseling for initiation of control method Z30.09
== END 2023-09-04 12:08 | disposition home or self-care (01) ==
LOC: HO.HWSM 11:27
PROVIDERS: PCP Nurse Practitioner Family; Visit Provider Advanced Practice Midwife
DX: Z01.419 Encounter for gynecological examination (general) (routine) without abnormal findings (principal); F41.9 Anxiety disorder, unspecified; F32.A Depression, unspecified
CPT/HCPCS: 99395

== ENCOUNTER 2023-09-12 13:08 | Outpatient (AMB) | payer BC, SELFPAY ==
--- NOTE | 2023-09-12 13:12 | A.OFFPC_ITS ---
Vital Signs 09/12/23 13:18 Height 5 ft 1 in Weight 120 lb 6 oz BMI 22.7 BP 90/50 L Blood Pressure Location Rt brachial Position Sitting Respiration 16 Pulse 73 Pulse Source Pulse Oximeter Temp 98.3 F Temp Source Oral Pulse Oximetry (%) 99 Oxygen Delivery Method Room Air Intake Visit Reasons: 3 mos anxiety, depression Intake Note: patient here for 3 month follow up on anxiety and depression.j Chemist Physical Required: No Is last menstrual period known: Yes Last menstrual period: 08/24/23 Post menopausal: No Patient : No Allergies No Known Allergies Allergy (Verified 09/12/23 13:21) N.K.D.A. Allergy (Unknown, Uncoded 09/12/23 13:21) Unknown Tobacco use date assessed: 09/12/23 Dental Screening Dental Screen Date: 09/12/23 Did you have a dental visit in the last 12 months?: Yes Did you have a dental problem in the last 6 months where you did not have access to dental care?: No Was dental information given to patient?: Patient has dentist HPI HPI Comments History of Present Illness Details 38-year-old female presents for an exten ded physical exam and anxiety and depression follow-up She admits to taking fluoxetine and buspirone as prescribed without adverse reactions She reports controlled anxiety and depression symptoms She offers no complaints and denies acute symptoms at this time She was referred for psychotherapy but notes she has not been contacted PENDING SALE TO [facility] Medical History No pertinent past medical history Surgical History No pertinent past surgical history Family History Other Mental health disorder Substance abuse Social History Housing: House Patient Tobacco Use Status: Former Tobacco user Tobacco use type: Cigarette Cigarette Packs Per Day: 0.2 Cigarettes Per Day: 5 Years Smoked: .5 e-Cigarette/Vaping Use: Never Used service: No Current occupational status: employed 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 1. Little interest or pleasure in doing things: several days 2. Feeling down, depressed, or hopeless: several days 3. Trouble falling or staying asleep, or sleeping too much: not at all 4. Feeling tired or having little energy: several days 5. Poor appetite or overeating: not at all 6. Feeling bad about yourself - or that you are a failure or have let yourself or your family down: several days 7. Trouble concentrating on things, such as reading the newspaper or watching television: several days 8. Moving or speaking so slowly that other people could have noticed. Or the opp osite - being so fidgety or restless that you have been moving around a lot more than usual: several days 9. Thoughts that you would be better off or of hurting yourself in some way: not at all Total score: 6 Depression Screening Interpretation: Positive Depression Screening Follow-up: Existing condition and In treatment Depression Screening Done: Yes Source: Developed by Drs. Iban Potter, Geeta Chan, Jean Claude Richardson and colleagues, with an educational facundo from [employer]. Thrive Questionnaire Date Thrive assessed: 03/14/23 PEE-7 AMB Questionnaire PEE-7 Date PEE - 7 assessed: 09/12/23 Feeling nervous, anxious, or on edge: 1 = Several days Not being able to stop or control worryin = Several days Worrying too much about different things: 1 = Several days Trouble relaxin = Several days Being so restless that it is hard to sit still: 1 = Several days Becoming easily annoyed or irritable: 1 = Several days Feeling afraid as if something awful might happen: 1 = Several days Total PEE-7 score (0-4 normal; 5-9 mild; 10-14 moderate; 15-21 severe): 7 Source: Developed by Drs. Iban Potter, Jean Claude Moss and colleagues, with an educational facundo from [employer]. PEE-7 Assessment Billing PEE-7 Assessment Tool: PEE-7 Assessment 18276 Review of Systems Const Details: Const Denies chills, Denies fatigue, Denies fever(s), Denies headache(s) and Denies weakness ENT Denies dizziness and Denies headache(s) Card Denies chest pain, Denies lightheadedness, Denies dyspnea and Denies other (Palpitations) Resp Denies cough, Denies dyspnea, Denies wheezing and Denies other ( shortness of breath) GI Denies abdominal pain, Denies melena, Denies hematochezia, Denies change in bowel habits, Denies dyspepsia and Denies nausea Denies hematuria and Denies dysuria Musc Denies abnormal gait, Denies myalgias, Denies arthralgias, Denies numbness and Denies tingling Skin/Breast Denies rash, Denies unusual bruising and Denies wounds Neuro Denies abnormal gait, Denies dizziness, Denies headache(s), Denies memory loss, Denies numbness, Denies Sensory deficit (Neuro), Denies tingling and Denies weakness Psych Denies anxiety, Denies depression, Denies memory loss Endo Denies cold intolerance, Denies fatigue, Denies heat intolerance, Denies polydipsia and Denies polyuria Aller/Immun Denies wheezing Physical exam (Primary Care) Vital Signs: Last Vital Signs Temp 98.3 F 09/12/23 13:18 Pulse 73 09/12/23 13:18 Resp 16 09/12/23 13:18 Pulse Ox 99 09/12/23 13:18 Oxygen Delivery Method Room Air 09/12/23 13:18 BMI result Body Mass Index 22.7 Tobacco/Smoking Status: Tobacco use Status Tobacco use date assessed 06/16/23 09/12/23 13:14 Patient Tobacco Use Status Former Tobacco user 09/12/23 13:14 Tobacco use type Cigarette 09/12/23 13:14 e-Cigarette/Vaping Use Never Used 09/12/23 13:14 Depression Screening Interpretation: Positive Depression Screening Follow-up: Existing condition and In treatment Thrive Assessment: Date of Thrive Assessment Date Thrive assessed 03/14/23 09/12/23 13:14 Const Other: General: no acute distress and well developed Nutritional Appearance: well nourished Orientation/consciousness: patient oriented x3 HENMT Head: Yes normocephalic and Yes atraumatic Eyes General: appearance normal, both eyes and all related structures Pupils: Equal, round and reactive pupils present EOM: EOMs intact bilaterally Resp Effort & Inspection: normal respiratory effort Auscultation: clear to auscultation bilaterally Cardio Rate: regular rate Rhythm: regular rhythm Heart sounds: S1 normal heart sound present, S2 normal heart sound present, no gallops, no murmurs and no rubs GI Palpation (GI): No Abdominal aortic bruit present, Soft to palpation, nontender, No hepatosplenomegaly present and No Rebound tenderness present Auscultation: normal bowel sounds General: Yes no CVA tenderness Back/Spine/Pelvis Back: no CVA tenderness Cervical Spine: cervical ROM normal and No Cervical spine tenderness Thoracic/Lumbar Spine: thoraco-lumbar ROM normal, No pain with thoraco-lumbar ROM, No thoracic spinal tenderness and No lumbar spinal tenderness Extrem General: Yes normal to inspection, No edema and No calf tenderness Skin General: warm and dry. Normal skin color. Normal skin turgor Neuro General: patient oriented x3, gait normal and no focal neuro deficit Cranial nerves: Yes Equal, round and reactive pupils present Cognition (Neuro): normal cognition Gait exam (Neuro): Normal gait present Sensory Exam: No Sensory deficit (Neuro) Psych Appearance: grossly normal Affect: normal affect Attitude: cooperative Thought process: Normal thought process present Assessment and Plan Assessment & Plan (1) Anxiety and depression: Code(s): F41.9 - Anxiety disorder, unspecified; F32.A - Depression, unspecified Plan: Controlled anxiety and depressive symptoms PHQ-9 and PEE-7 scores revealed mild depression and anxiety respectively Continue current treatment regimen Routine exercise encouraged She met with the [facility] who would help her connect to a therapist Follow-up in 3 months or return sooner with symptoms or concerns Verbalized understanding and agreed with treatment plan Coding Level of Care Code Tele New Pt Level 4 (12392) Diagnoses Anxiety and depression F41.9; F32.A Additional Codes PEE-7 Assessment Billing - PEE-7 Assessment Tool: PEE-7 Assessment 04324 ([id number])
[2023-09-12 13:18] VITALS: BP 90/50; PULSE 73; RESP 16; TEMP 36.8; O2SAT 99; BMI 22.7
== END 2023-09-12 13:41 | disposition home or self-care (01) ==
PROVIDERS: PCP Nurse Practitioner Family; Visit Provider Nurse Practitioner Family
DX: F41.9 Anxiety disorder, unspecified (principal); F32.A Depression, unspecified
CPT/HCPCS: 99214

== ENCOUNTER 2023-12-26 15:51 | Outpatient (AMB) | payer BC, SELFPAY ==
--- NOTE | 2023-12-26 15:52 | MHC.PC.OV ---
Vital Signs 12/26/23 15:57 Height 5 ft 1 in Weight 133 lb 2 oz BMI 25.2 BP 106/64 Blood Pressure Location Rt brachial Position Sitting Respiration 16 Pulse 78 Pulse Source Pulse Oximeter Temp 98.3 F Temp Source Oral Pulse Oximetry (%) 96 Oxygen Delivery Method Room Air Intake Visit Reasons: F/U appointment Intake Note: patient here for follow up on anxiety and depression Glaze Wiper Required: No Is last menstrual period known: Yes Last menstrual period: 12/24/23 Post menopausal: No Patient : No Allergies No Known Allergies Allergy (Verified 12/26/23 16:10) N.K.D.A. Allergy (Unknown, Uncoded 12/26/23 16:10) Unknown Medication List - Last Reconciled 12/26/23 by Carmen Britt CNP buspirone 7.5 mg PO BID 30 days fluoxetine 20 mg PO DAILY 30 days norethindrone (contraceptive) 0.35 mg PO DAILY Tobacco use date assessed: 12/26/23 Dental Screening Dental Screen Date: 12/26/23 Did you have a dental visit in the last 12 months?: Yes Did you have a dental problem in the last 6 months where you did not have access to dental care?: No Was dental information given to patient?: Patient has dentist HPI HPI Comments History of Present Illness Details The patient is a 38-year-old female presenting with a follow-up for anxiety and depression management. She reports that she feels much better and that her anxiety and depression are currently controlled. She is taking buspirone and fluoxetine as prescribed and has not experienced any adverse reactions. Her sleep quality has improved, although it remains variable, with occasional awakenings related to stress. The patient can generally return to sleep without issues. She engages in regular exercise which helps with her condition. [facility] Medical History No pertinent past medical history Surgical History No pertinent past surgical history Family History Other Mental health disorder Substance abuse Social History Housing: House Patient Tobacco Use Status: Former Tobacco user Tobacco use type: Cigarette Cigarette Packs Per Day: 0.2 Cigarettes Per Day: 5 Years Smoked: .5 e-Cigarette/Vaping Use: Never Used service: No Current occupational status: employed 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 Current occupational exposures/hazards: No Cognitive needs: No Hearing needs: No Vision needs: No Female Reproductive History Menstrual Age of Menarche: 15 Date of last menstrual period: 12/24/23 Questionnaire PHQ-9 Over the last 2 weeks, how often have you been bothered by any of the following problems? 1. Little interest or pleasure in doing things: not at all 2. Feeling down, depressed, or hopeless: not at all 3. Trouble falling or staying asleep, or sleeping too much: several days 4. Feeling tired or having little energy: several days 5. Poor appetite or overeating: not at all 6. Feeling bad about yourself - or that you are a failure or have let yourself or your family down: several days 7. Trouble concentrating on things, such as reading the newspaper or watching television: several days 8. Moving or speaking so slowly that other people could have noticed. Or the opposite - being so fidgety or restless that you have been moving around a lot more than usual: several days 9. Thoughts that you would be better off or of hurting yourself in some way: not at all Total score: 5 Depression Screening Interpretation: Positive Depression Screening Follow-up: Existing condition and In treatment Depression Screening Done: Yes 93716 - PHQ-9 Billing: Yes Source: Developed by Drs. Iban Potter, Geeta Chan, Jean Claude Richardson and colleagues, with an educational facundo from [employer]. Thrive Questionnaire Date Thrive assessed: 12/26/23 I am a: Patient What is your living situation today?: I have a steady place to live Within the past 12 months, did the food you bought not last and you didn't have the money to get more?: Never true Within the past 12 months, did you worry whether your food would run out before you got money to buy more?: Never true Do you have trouble paying for medicines?: No Do you have trouble getting transportation to medical appointments?: No Do you have trouble paying your heating and electricity bill?: No Do you have trouble taking care of your child, family member or friend?: No Do you have trouble with day-to-day activities such as bathing, preparing meals, shopping, managing finances, etc.?: No Are you currently unemployed and looking for a job?: No Are you interested in more education?: I choose not to answer this question Please select the resources that you would like help with: None Currently or been in a relationship where the following occur: No concerns reported THRIVE Score: 0 AUDIT C Alcohol Use Questionnaire (AUDIT-C) 1. How often do you have a drink containing alcohol?: 2-4 times a month 2. How many drinks containing alcohol do you have on a typical day when you are drinking?: 1 or 2 3. How often do you have six or more drinks on one occasion?: Never Total Score: 2 PEE-7 AMB Questionnaire PEE-7 Date PEE - 7 assessed: 12/26/23 Feeling nervous, anxious, or on edge: 1 = Several days Not being able to stop or control worryin = Several days Worrying too much about different things: 1 = Several days Trouble relaxin = Not at all Being so restless that it is hard to sit still: 1 = Several days Becoming easily annoyed or irritable: 1 = Several days Feeling afraid as if something awful might happen: 0 = Not at all Total PEE-7 score (0-4 normal; 5-9 mild; 10-14 moderate; 15-21 severe): 5 Source: Developed by Drs. Iban Potter, Geeta Chan, Jean Claude Richardson and colleagues, with an educational facundo from [employer]. PEE-7 Assessment Billing PEE-7 Assessment Tool: PEE-7 Assessment 53716 Review of Systems Const Details: Const Denies chills, Denies fatigue, Denies fever(s), Denies headache(s) and Denies weakness ENT Denies dizziness and Denies headache(s) Card Denies chest pain, Denies lightheadedness, Denies dyspnea and Denies other (Palpitations) Resp Denies cough, Denies dyspnea, Denies wheezing and Denies other ( shortness of breath) GI Denies abdominal pain, Denies melena, Denies hematochezia, Denies change in bowel habits, Denies dyspepsia and Denies nausea Denies hematuria and Denies dysuria Musc Denies abnormal gait, Denies myalgias, Denies arthralgias, Denies numbness and Denies tingling Skin/Breast Denies rash, Denies unusual bruising and Denies wounds Neuro Denies abnormal gait, Denies dizziness, Denies headache(s), Denies memory loss, Denies numbness, Denies Sensory deficit (Neuro), Denies tingling and Denies weakness Psych Reports improved mood and reduced anxiety; variable sleep with some stress-related awakenings. Denies memory loss Endo Denies cold intolerance, Denies fatigue, Denies heat intolerance, Denies polydipsia and Denies polyuria Aller/Immun Denies wheezing Physical exam (Primary Care) Vital Signs: Last Vital Signs Temp 98.3 F 12/26/23 15:57 Pulse 78 12/26/23 15:57 Resp 16 12/26/23 15:57 BP 106/64 12/26/23 15:57 Pulse Ox 96 12/26/23 15:57 Oxygen Delivery Method Room Air 12/26/23 15:57 BMI result Body Mass Index 25.2 Tobacco/Smoking Status: Tobacco use Status Tobacco use date assessed 12/26/23 12/26/23 15:59 Patient Tobacco Use Status Former Tobacco user 12/26/23 15:59 Tobacco use type Cigarette 12/26/23 15:59 e-Cigarette/Vaping Use Never Used 12/26/23 15:59 PHQ-9: PHQ-9 Score PHQ-9: Total score 5 12/26/23 15:59 Depression Screening Interpretation: Positive Depression Screening Follow-up: Existing condition and In treatment Thrive Assessment: Date of Thrive Assessment Date Thrive assessed 12/26/23 12/26/23 15:59 Currently or been in a relationship where the following occur: No concerns reported Const Other: General: no acute distress and well developed Nutritional Appearance: well nourished Orientation/consciousness: patient oriented x3 HENMT Head: Yes normocephalic and Yes atraumatic Eyes General: appearance normal, both eyes and all related structures Pupils: Equal, round and reactive pupils present EOM: EOMs intact bilaterally Resp Effort & Inspection: normal respiratory effort Auscultation: clear to auscultation bilaterally Cardio Rate: regular rate Rhythm: regular rhythm Heart sounds: S1 normal heart sound present, S2 normal heart sound present, no gallops, no murmurs and no rubs GI Palpation (GI): No Abdominal aortic bruit present, Soft to palpation, nontender, No hepatosplenomegaly present and No Rebound tenderness present Auscultation: normal bowel sounds General: Yes no CVA tenderness Back/Spine/Pelvis Back: no CVA tenderness Extrem General: Yes normal to inspection, No edema and No calf tenderness Skin General: warm and dry. Normal skin color. Normal skin turgor Neuro General: patient oriented x3, gait normal and no focal neuro deficit Cranial nerves: Yes Equal, round and reactive pupils present Cognition (Neuro): normal cognition Gait exam (Neuro): Normal gait present Sensory Exam: No Sensory deficit (Neuro) Psych Appearance: grossly normal Affect: normal affect Attitude: cooperative Thought process: Normal thought process present Coding Level of Care Code Est Pt Level 3 (16298) Diagnoses Anxiety and depression F41.9; F32.A Additional Codes PEE-7 Assessment Billing - PEE-7 Assessment Tool: PEE-7 Assessment 70117 ([id number]) PHQ-9 - 96133 - PHQ-9 Billing: Yes ([id number]) Assessment & Plan Assessment & Plan (1) Anxiety and depression: Code(s): F41.9 - Anxiety disorder, unspecified; F32.A - Depression, unspecified Category: Medical Plan: PHQ-9 score of 5, PEE-7 score of 5, indicating mild symptoms of anxiety and depression. Continue current medications buspirone and fluoxetine) as patient reports symptom control and no adverse reactions. Advise maintaining regular exercise and monitoring of sleep patterns. Follow-up in three months unless symptoms worsen or changes are needed. I discussed with the patient the current status of her anxiety and depression, which appear to be well-controlled with the current medication regimen of buspirone and fluoxetine. No adverse reactions were noted. We reviewed her sleep patterns and suggested avoiding exercise close to bedtime to improve sleep quality further. The importance of avoiding caffeine before bedtime was also discussed. Follow-up is scheduled for three months, with instructions to return sooner if symptoms change. - Continue taking buspirone and fluoxetine as prescribed. - Maintain regular morning exercise and monitor sleep patterns. - Avoid exercising within two hours of bedtime. - Avoid caffeine before bedtime to aid sleep. - Follow up in three months or sooner if symptoms change.
[2023-12-26 15:57] VITALS: BP 106/64; PULSE 78; RESP 16; TEMP 36.8; O2SAT 96; BMI 25.2
== END 2023-12-26 16:17 | disposition home or self-care (01) ==
PROVIDERS: PCP Nurse Practitioner Family; Visit Provider Nurse Practitioner Family
DX: F41.9 Anxiety disorder, unspecified (principal); F32.A Depression, unspecified

== ENCOUNTER → 2023-12-26 15:51 | Outpatient (BNVA) | payer BC, SELFPAY | PROVIDERS: PCP Nurse Practitioner Family; Visit Provider Nurse Practitioner Family | DX: F41.9 Anxiety disorder, unspecified (principal); F32.A Depression, unspecified; Z79.899 Other long term (current) drug therapy | CPT/HCPCS: 96127 ==

== ENCOUNTER 2024-02-13 08:35 | Outpatient (AMB) | payer BC, SELFPAY ==
[2024-02-13 09:00] VITALS: BP 94/62; PULSE 81; TEMP 36.8; O2SAT 96; BMI 24.7
--- NOTE | 2024-02-13 09:00 | AM.OFFWIN_ITS ---
Intake Vital Signs 02/13/24 09:00 Height 5 ft 1 in Weight 131 lb BMI 24.7 BP 94/62 Blood Pressure Location Lt brachial Position Sitting Pulse 81 Pulse Source Pulse Oximeter Temp 98.2 F Temp Source Oral Pulse Oximetry (%) 96 Oxygen Delivery Method Room Air Intake Visit Reasons: EP Sore throat Intake Note: Pt is here today c/o Sore throat Patient Tobacco Use Status: Former Tobacco user Allergies No Known Allergies Allergy (Verified 02/13/24 09:02) N.K.D.A. Allergy (Unknown, Uncoded 02/13/24 09:02) Unknown HPI HPI Comments History of Present Illness Details History - The patient is a 38-year-old female pr esenting with throat discomfort with possible streptococcal infection. - Onset of symptoms occurred on 2 days a go with associated chills and body ache. - Yesterday, experienced a significant h eadache and slept extensively. - The patient observed white spots in th e throat. - Symptoms include throat thickness and tender lymph nodes. - No accompanying cough, ear pain, or si nus pain. 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 Physical Exam General: Cooperative, healthy appearing, comfortable and no acute distress Orientation/consciousness: Patient oriented x3 Limitations: No limitations Head: Normal to inspection Ears: Hearing grossly normal bilaterally, external ears normal and TM's normal bilaterally Nose: Normal external nose present, Normal nares present and No nasal discharge present Face and sinus: Normal facial exam and Yes sinuses nontender Mouth: Normal oral and palatal mucosa present and moist mucous membranes Throat: Yes tonsils normal, Yes uvula midline. Posterior oropharynx erythema with exudates noted on right side Eyes: Appearance normal, both eyes and all related structures Neck: Normal visual inspection, lymph nodes slightly swollen and tender Respiratory: Normal respiratory effort, able to speak in complete sentences, No cough, no respiratory distress, not tachypneic, no tripod positioning and no use of accessory muscles Skin: No rashes or lesions noted Neuro: Patient oriented x3 Extremities: Normal to inspection and Yes no clubbing, cyanosis or edema PFSH Medical History No pertinent past medical history Surgical History No pertinent past surgical history Family History Other Mental health disorder Substance abuse Social History Housing: House Patient Tobacco Use Status: Former Tobacco user Tobacco use type: Cigarette Cigarette Packs Per Day: 0.2 Cigarettes Per Day: 5 Years Smoked: .5 e-Cigarette/Vaping Use: Never Used service: No Current occupational status: employed 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 [employer] Current occupational exposures/hazards: No Cognitive needs: No Hearing needs: No Vision needs: No Female Reproductive History Menstrual Age of Menarche: 15 Review of Systems Const All systems reviewed & are unremarkable except as noted in HPI and below Physical Exam Vital Signs: Last Vital Signs Temp 98.2 F 02/13/24 09:00 Pulse 81 02/13/24 09:00 BP 94/62 02/13/24 09:00 Pulse Ox 96 02/13/24 09:00 Oxygen Delivery Method Room Air 02/13/24 09:00 BMI result Body Mass Index 24.7 Results AMB Rapid Strep AMB Rapid Strep Negative Last Edit by Louisa Ferrer CMA on 02/13/24 09:18 Results Reviewed Results Reviewed: Laboratory Last Values Strep Scn Rapid Clinic Negative 02/13/24 09:09 Assessment & Plan Assessment & Plan (1) Acute streptococcal pharyngitis: Code(s): J02.0 - Streptococcal pharyngitis Plan: Centor criteria 3 points, 29-35% probability of strep, will treat with abx. The diagnosis is suspected streptococcal pharyngitis given the symptom presen tation and high-risk exposure, despite a negative rapid strep test result. Empirical treatment is initiated with Amoxicillin 500 mg to be taken twice daily for ten days. To prevent potential transmission, the patient is advised to avoid work for 48 hours after starting antibiotics, use personal eating utensils or straws, and wear a mask. Given the patient's high exposure risk at work, immediate initiation of treatment is prioritized, with a work note provided for absence verification. A follow-up culture is deferred due to the high likelihood of streptococcal infection. Patient was informed and verbally consented to the use of an ambient scribe for clinic note documentation during this visit Orders: Orders AMB Rapid Strep Screen Today Z13.9 - Encounter for screening, unspecified Medications: New amoxicillin 500 mg PO Q12H 20 tabs 0RF Coding Level of Care Code Est Pt Level 3 (20151) Diagnoses Acute streptococcal pharyngitis J02.0
== END 2024-02-13 09:56 | disposition home or self-care (01) ==
PROVIDERS: PCP Nurse Practitioner Family; Visit Provider Physician Assistant
DX: Z13.9 Encounter for screening, unspecified (principal); J02.0 Streptococcal pharyngitis

== ENCOUNTER → 2024-02-13 08:35 | Outpatient (BNVA) | payer BC, SELFPAY | PROVIDERS: PCP Nurse Practitioner Family; Visit Provider Physician Assistant | DX: J02.0 Streptococcal pharyngitis (principal) | CPT/HCPCS: 87880 ==

== ENCOUNTER 2024-03-26 08:24 | Outpatient (AMB) | payer BC, SELFPAY ==
--- NOTE | 2024-03-26 08:28 | A.OFFPC_ITS ---
Vital Signs 03/26/24 08:33 Height 5 ft 1 in Weight 132 lb 8 oz BMI 25.0 BP 105/55 L Blood Pressure Location Rt brachial Position Sitting Respiration 16 Pulse 63 Pulse Source Pulse Oximeter Temp 99.2 F Temp Source Oral Pulse Oximetry (%) 100 Oxygen Delivery Method Room Air Intake Visit Reasons: 3 mos anxiety, depression Intake Note: patient here for 3 month follow up on depression and anxiety R&D Lab Technician Required: No Is last menstrual period known: No ( control) Post menopausal: No Patient : No Allergies No Known Allergies Allergy (Verified 03/26/24 08:41) N.K.D.A. Allergy (Unknown, Uncoded 03/26/24 08:41) Unknown Medication List - Last Reconciled 03/26/24 by Carmen Britt CNP buspirone 7.5 mg PO BID 30 days fluoxetine 20 mg PO DAILY 30 days norethindrone (contraceptive) 0.35 mg PO DAILY Tobacco use date assessed: 03/26/24 Dental Screening Dental Screen Date: 03/26/24 Did you have a dental visit in the last 12 months?: Yes Did you have a dental problem in the last 6 months where you did not have access to dental care?: No Was dental information given to patient?: Patient has dentist HPI HPI Comments History of Present Illness Details 38-year-old female presents for anxiety and depression follow-up. She admits to taking her medications as prescribed without adverse reactions. Her anxiety and depressive symptoms are generally well controlled. She has been going through several life changes recently. She has 3 children. She is going through marital issues and wants to divorce her but finding it difficult. She thinks she will be better if she disappears and not necessarily . She notes that her children will be better with her been around. She denies active SI. She denies HI or AVH. She follows a therapist via telehealth once a week and finds it very helpful. She exercises routinely. She does not think her medications should be adjusted at this time. 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 1. Little interest or pleasure in doing things: more than half the days 2. Feeling down, depressed, or hopeless: more than half the days 3. Trouble falling or staying asleep, or sleeping too much: more than half the days 4. Feeling tired or having little energy: more than half the days 5. Poor appetite or overeating: several days 6. Feeling bad about yourself - or that you are a failure or have let yourself or your family down: more than half the days 7. Trouble concentrating on things, such as reading the newspaper or watching television: several days 8. Moving or speaking so slowly that other people could have noticed. Or the opposite - being so fidgety or restless that you have been moving around a lot more than usual: not at all 9. Thoughts that you would be better off or of hurting yourself in some way: several days Total score: 13 Depression Screening Interpretation: Positive Depression Screening Follow-up: Existing condition and In treatment Depression Screening Done: Yes 21217 - PHQ-9 Billing: Yes Source: Developed by Drs. Iban Potter, Geeta Chan, Jean Claude Richardson and colleagues, with an educational facundo from [employer]. Thrive Questionnaire Date Thrive assessed: 03/26/24 I am a: Patient What is your living situation today?: I have a steady place to live Within the past 12 months, did the food you bought not last and you didn't have the money to get more?: Never true Within the past 12 months, did you worry whether your food would run out before you got money to buy more?: Never true Do you have trouble paying for medicines?: No Do you have trouble getting transportation to medical appointments?: No Do you have trouble paying your heating and electricity bill?: No Do you have trouble taking care of your child, family member or friend?: No Do you have trouble with day-to-day activities such as bathing, preparing meals, shopping, managing finances, etc.?: No Are you currently unemployed and looking for a job?: No Are you interested in more education?: No Please select the resources that you would like help with: None Currently or been in a relationship where the following occur: I choose not to answer THRIVE Score: 0 AUDIT C Alcohol Use Questionnaire (AUDIT-C) 1. How often do you have a drink containing alcohol?: 2-4 times a month 2. How many drinks containing alcohol do you have on a typical day when you are drinking?: 3 or 4 3. How often do you have six or more drinks on one occasion?: Never Total Score: 3 Score Reviewed/Action Taken: Yes PEE-7 AMB Questionnaire PEE-7 Date PEE - 7 assessed: 03/26/24 Feeling nervous, anxious, or on edge: 2 = More than half the days Not being able to stop or control worryin = More than half the days Worrying too much about different things: 2 = More than half the days Trouble relaxin = More than half the days Being so restless that it is hard to sit still: 2 = More than half the days Becoming easily annoyed or irritable: 2 = More than half the days Feeling afraid as if something awful might happen: 2 = More than half the days Total PEE-7 score (0-4 normal; 5-9 mild; 10-14 moderate; 15-21 severe): 14 Source: Developed by Drs. Iban Potter, Geeta Chan, Jean Claude Richardson and colleagues, with an educational facundo from [employer]. PEE-7 Assessment Billing PEE-7 Assessment Tool: PEE-7 Assessment 89909 Review of Systems Const Details: Const Denies chills, Denies fatigue, Denies fever(s), Denies headache(s) and Denies weakness ENT Denies dizziness and Denies headache(s) Card Denies chest pain, Denies lightheadedness, Denies dyspnea and Denies other (Palpitations) Resp Denies cough, Denies dyspnea, Denies wheezing and Denies other ( shortness of breath) GI Denies abdominal pain, Denies melena, Denies hematochezia, Denies change in bowel habits, Denies dyspepsia and Denies nausea Denies hematuria and Denies dysuria Musc Denies abnormal gait, Denies myalgias, Denies arthralgias, Denies numbness and Denies tingling Skin/Breast Denies rash, Denies unusual bruising and Denies wounds Neuro Denies abnormal gait, Denies dizziness, Denies headache(s), Denies memory loss, Denies numbness, Denies Sensory deficit (Neuro), Denies tingling and Denies weakness Psych Reports anxiety, Reports depression, Denies memory loss Endo Denies cold intolerance, Denies fatigue, Denies heat intolerance, Denies polydipsia and Denies polyuria Aller/Immun Denies wheezing Physical exam (Primary Care) Vital Signs: Last Vital Signs Temp 99.2 F 03/26/24 08:33 Pulse 63 03/26/24 08:33 Resp 16 03/26/24 08:33 BP 105/55 L 03/26/24 08:33 Pulse Ox 100 03/26/24 08:33 Oxygen Delivery Method Room Air 03/26/24 08:33 BMI result Body Mass Index 25.0 Tobacco/Smoking Status: Tobacco use Status Tobacco use date assessed 03/26/24 03/26/24 08:36 Patient Tobacco Use Status Former Tobacco user 03/26/24 08:30 Tobacco use type Cigarette 03/26/24 08:30 e-Cigarette/Vaping Use Never Used 03/26/24 08:30 PHQ-9: PHQ-9 Score PHQ-9: Total score 13 03/26/24 08:30 Depression Screening Interpretation: Positive Depression Screening Follow-up: Existing condition and In treatment Thrive Assessment: Date of Thrive Assessment Date Thrive assessed 03/26/24 03/26/24 08:30 Currently or been in a relationship where the following occur: I choose not to answer Const Other: General: no acute distress and well developed Nutritional Appearance: well nourished Orientation/consciousness: patient oriented x3 HENMT Head: Yes normocephalic and Yes atraumatic Eyes General: appearance normal, both eyes and all related structures Pupils: Equal, round and reactive pupils present EOM: EOMs intact bilaterally Resp Effort & Inspection: normal respiratory effort Auscultation: clear to auscultation bilaterally Cardio Rate: regular rate Rhythm: regular rhythm Heart sounds: S1 normal heart sound present, S2 normal heart sound present, no gallops, no murmurs and no rubs GI Palpation (GI): No Abdominal aortic bruit present, Soft to palpation, nontender, No hepatosplenomegaly present and No Rebound tenderness present Auscultation: normal bowel sounds General: Yes no CVA tenderness Back/Spine/Pelvis Back: no CVA tenderness Cervical Spine: cervical ROM normal and No Cervical spine tenderness Thoracic/Lumbar Spine: thoraco-lumbar ROM normal, No pain with thoraco-lumbar ROM, No thoracic spinal tenderness and No lumbar spinal tenderness Extrem General: Yes normal to inspection, No edema and No calf tenderness Skin General: warm and dry. Normal skin color. Normal skin turgor Neuro General: patient oriented x3, gait normal and no focal neuro deficit Cranial nerves: Yes Equal, round and reactive pupils present Cognition (Neuro): normal cognition Gait exam (Neuro): Normal gait present Sensory Exam: No Sensory deficit (Neuro) Psych Appearance: grossly normal Affect: normal affect Attitude: cooperative Thought process: Normal thought process present Coding Level of Care Code New Pt Level 3 (41548) Diagnoses Anxiety and depression F41.9; F32.A Additional Codes PEE-7 Assessment Billing - PEE-7 Assessment Tool: PEE-7 Assessment 87593 ([id number]) PHQ-9 - 87220 - PHQ-9 Billing: Yes ([id number]) Assessment & Plan Assessment & Plan (1) Anxiety and depression: Code(s): F41.9 - Anxiety disorder, unspecified; F32.A - Depression, unspecified Category: Medical Plan: Anxiety and depressive symptoms are generally well controlled. PHQ-9 and PEE-7 scores revealed moderate depression and anxiety. She is undergoing marital issues and finds it difficult to divorce her . She findings weekly therapy helpful which I encouraged. Continue current treatment regimen. Routine exercise encouraged. She has the crisis line information and knows when to contact to them. Follow-up in 1 month or sooner with worsening or new symptoms. Verbalized understanding and agreed with the treatment plan.
[2024-03-26 08:33] VITALS: BP 105/55; PULSE 63; RESP 16; TEMP 37.3; O2SAT 100; BMI 25.0
--- OUTSIDE RECORDS SUMMARY | 2024-03-26 08:39 | XMS_ITS | Encounter Summary ---
Author Organization [facility] Address [address] [place] [address] Care Team Providers Care Gravity Prospecting Operator Name Role Phone Haritha Kaur MD Primary Care Provider Encounter Details Date Type Department Care Team ([facility] st Contact Info) Description 03/21/2018 Orders Only [facility] SKIMMER SCOOP OPERATOR [address] [facility] [address] [place] [address] Provider, [facility] Social History Tobacco Use Types Packs/Day Years Used Date Smoking Tobacco: Never Assessed Comments Unknown Sex and Gender Information Value Date Recorded Sex Assigned at Not on file Legal Sex Female 4:57 PM EST Gender Identity Not on file Sexual Orientation Not on file documented as of this encounter Plan of Treatment Not on file documented as of this encounter Results * Due to [place] state law, this organization might not be sharing negative HIV tests. * US TRANSVAGINAL (FOR IVF USE ONLY)FC (03/22/2018 7:28 AM EST) Narrative [facility] - 03/22/2018 7:28 AM EST Study performed for the acquisition of images only. ??No professional Interpretation required. us Repsc Provider IMG US OBGYN ORDERABLES Final Re sult [facility] documented in this encounter Visit Diagnoses Diagnosis Female infertility Female infertility of unspecified origin Female infertility Female infertility of unspecified origin documented in this encounter Care Teams Gravity Prospecting Operator Relationship Specialty Start Date End Date Haritha Kaur MD [address] [place] [address] PCP - General Internal Medicine 03/22/18 documented as of this encounter
--- OUTSIDE RECORDS SUMMARY | 2024-03-26 08:39 | XMS_ITS | Encounter Summary ---
Author Organization [facility] Address [address] [place] [address] Care Team Providers Care Gutter Installer Name Role Phone Haritha Kaur MD Primary Care Provider Encounter Details Date Type Department Care Team ([facility] st Contact Info) Description 05/17/2018 Orders Only [facility] BRAKES INSPECTOR [address] [facility] [address] [place] [address] Provider, [facility] Social History Tobacco Use Types Packs/Day Years [...] of this encounter Results * Due to [place] state law, this organization might not be sharing negative HIV tests. * US TRANSVAGINAL (FOR IVF USE ONLY)FC (05/22/2018 7:26 AM EDT) Narrative [facility] - 05/22/2018 7:27 AM EDT Study performed for the acquisition of images only. ??No professional Interpretation required. us Repsc Provider IMG US OBGYN ORDERABLES Final Re sult [facility] documented in this encounter Visit Diagnoses Diagnosis Female infertility Female infertility of unspecified origin Female infertility Female infertility of unspecified origin documented in this encounter Care Teams Gutter Installer Relationship Specialty Start Date End Date Haritha Kaur MD [address] [place] [address] PCP - General Internal Medicine 03/22/18 documented as of this encounter
--- OUTSIDE RECORDS SUMMARY | 2024-03-26 08:39 | XMS_ITS | Clinical Summary ---
Author Organization [facility] Address [address] [place] [address] Care Team Providers Care Personnel Records Clerk Name Role Phone Haritha Kaur MD Primary Care Provider Social History Tobacco Use Types Packs/Day Years Used Date Smoking Tobacco: Never Assessed Intimate Partner Violence Answer Date R ecorded Fear of Current or Ex-Partner Not on file Emotionally Abused Not on file 09/29/2022 Physically Abused Not on file 09/29/2022 Sexually Abused Not on file 09/29/2022 Feel Safe at Home Not on file 09/29/2022 Comments Unknown Sex and Gender Information Value Date Recorded Sex Assigned at Not on file Legal Sex Female 4:57 PM EST Gender Identity Not on file Sexual Orientation Not on file Plan of Treatment Health Maintenance Due Date Last Done Comments Hepatitis C Screening 1985 Pap Smear 2001 DTaP/Tdap/Td (1 - Tdap) 08/25/2003 Hep B (1 of 3 - 19+ 3-dose series) 2004 COVID-19 Vaccine (2023-2 5 season) 2023 Influenza (#1) 2023 Zoster (Shingrix) (1 of 2) 08/25/2035 HPV Vaccine Aged Out No longer eligi ble based on patient's age to complete this topic Hep A Aged Out No longer eligi ble based on patient's age to complete this topic Hib Aged Out No longer eligi ble based on patient's age to complete this topic Meningococcal ACWY Aged Out No longer eligible based on patient's age to complete this topic Pneumococcal Aged Out No longer eligi ble based on patient's age to complete this topic Insurance * Guarantor: SANDEE NATARAJAN Account Type Relation to Patient Date of Phone Billing Address Personal/Family [address] [place] [address] [place] [address] FFS Care Teams Personnel Records Clerk Relationship Specialty Start Date End Date Haritha Kaur MD [address] [place] [address] PCP - General Internal Medicine 03/22/18
== END 2024-03-26 08:52 | disposition home or self-care (01) ==
PROVIDERS: PCP Nurse Practitioner Family; Visit Provider Nurse Practitioner Family
DX: F41.9 Anxiety disorder, unspecified (principal); F32.A Depression, unspecified

== ENCOUNTER → 2024-03-26 08:24 | Outpatient (BNVA) | payer BC, SELFPAY | PROVIDERS: PCP Nurse Practitioner Family; Visit Provider Nurse Practitioner Family | DX: F41.9 Anxiety disorder, unspecified (principal); F32.A Depression, unspecified | CPT/HCPCS: 96127 ==

== ENCOUNTER 2024-04-22 22:54 | Inpatient (IN) | payer BC, SELFPAY ==
[2024-04-22 23:11] VITALS: BP 116/73; BP 127/85; PULSE 77; PULSE 94; RESP 16; TEMP 37.2; O2SAT 98; BMI 24.0
--- NOTE | 2024-04-22 23:24 | ECG_ITS ---
Test Reason : OVERDOSE Blood Pressure : */* mmHG Vent. Rate : 79 BPM Atrial Rate : 79 BPM P-R Int : 128 ms QRS Dur : 84 ms QT Int : 382 ms P-R-T Axes : 76 25 31 degrees QTcB Int : 438 ms Normal sinus rhythm Cannot rule out Anterior infarct , age undetermined Abnormal ECG No previous ECGs available Referred By: Generic ED Physician Electronically Signed By: Raoul Jackson
--- NOTE | 2024-04-22 23:45 | MHC.EDTECH ---
Patient belongings listed completed and belongings in [facility]
--- NOTE | 2024-04-22 23:45 | MHC.EDTECH ---
patient lab work obtained, patient placed on atomic physics teacher, patient changed over into hospital clothing and belongings secured in [place]. patient has 1:1 sitter patient cooperative
[2024-04-23 00:02] LABS: MANUAL DIFF FLAG NO
[2024-04-23 00:05] LABS: Basophils Absolute Auto 0.1 X10*3/uL (0.0-0.2); Basophils Percent Auto 0.8 % (0-2); Eosinophils Percent Auto 0.4 % (0-4); Hematocrit 41.1 % (37.0-47.0); Hemoglobin 14.4 g/dl (12.0-16.0); Imm Gran Abs Auto 0.01 X10*3/uL (0.00-0.03); Imm Gran Pct Auto 0.1 % (0.0-0.4); Lymphocytes Absolute Auto 1.7 X10*3/uL (1.2-4.9); Lymphocytes Percent Auto 22.9 % (20-40); Mean Corpuscular Volume 88.6 fL (80.0-98.0); Mean Platelet Volume 9.6 fL (9.4-12.3); Monocytes Absolute Auto 0.4 X10*3/uL (0.1-1.2); Monocytes Percent Auto 5.4 % (2-11); Neutrophils Absolute Auto 5.1 x10*3/uL (2.0-8.3); Neutrophils Percent Auto 70.4 % (45-73); Platelet Count 207 X10*3/uL (160-400); Red Blood Count 4.64 X10*6/uL (4.20-5.50); Red Cell Distribution Width 12.5 % (11.0-16.0); White Blood Count 7.3 X10*3/uL (4.8-10.8)
[2024-04-23 00:17] LABS: Amphetamine Screen Urine Not Detected (Not Detect); Barbiturates, Urine Not Detected (Not Detect); Benzodiazepines Screen Urine Not Detected (Not Detect); Buprenorphine Scr Not Detected (Not Detect); Cannabinoid Screen Urine Not Detected (Not Detect); Cocaine Screen Urine Not Detected (Not Detect); Fentanyl, urine Not Detected (Not Detect); Methadone Screen, Urine Not Detected (Not Detect); Opiate Screen Urine Not Detected (Not Detect); Oxycodone Screen Urine Not Detected (Not Detect); Phencyclidine Screen Urine Not Detected (Not Detect)
[2024-04-23 00:23] LABS: Alanine Aminotransferase 14 U/L (0-31); Albumin Level 4.7 g/dL (3.5-5.0); Alkaline Phosphatase 57 U/L (39-117); Anion Gap 13 (12-20); Aspartate Amino Transferase 20 U/L (5-31); Bilirubin Total 0.3 mg/dL (0.0-1.0); Blood Urea Nitrogen 13 mg/dL (9-16); Calcium 9.1 mg/dL (8.4-10.2); Carbon Dioxide 22 mmol/L (22-29); Chloride 111 mmol/L (96-108); Creatinine Clr Calc Pharmacy 77.8; Estimated Glomerular Filt Rate > 60; Ethanol 216 mg/dL; Glucose Random 109 mg/dL (60-115); Potassium 3.3 mmol/L (3.3-5.1); Sodium 143 mmol/L (135-145); Total Protein 8.1 g/dL (6.5-8.0)
[2024-04-23 00:25] LABS: Acetaminophen LAB < 3 mcg/mL (<30); Salicylate < 5.0 mg/dL (15-30)
[2024-04-23 00:32] LABS: Troponin-I High Sensitivity < 2.7 ng/L (<3.5-17.0)
--- OUTSIDE RECORDS SUMMARY | 2024-04-23 00:49 | XMS_ITS | Encounter Summary ---
Author Organization [facility] Address [address] [place] [address] Care Team Providers Care Admissions Gate Attendant Name Role Phone Haritha Kaur MD Primary Care Provider Encounter Details Date Type Department Care Team ([facility] st Contact Info) Description 05/17/2018 Orders Only [facility] SECURITY INFRASTRUCTURE ENGINEER [address] [facility] [address] [place] [address] Provider, [place] Social History Tobacco Use Types Packs/Day Years [...] of this encounter Results * Due to [place] state law, this organization might not be sharing negative HIV tests. * US TRANSVAGINAL (FOR IVF USE ONLY)FC (05/22/2018 7:26 AM EDT) Narrative [facility] - 05/22/2018 7:27 AM EDT Study performed for the acquisition of images only. ??No professional Interpretation required. us Repsc Provider IMG US OBGYN ORDERABLES Final Re sult [facility] documented in this encounter Visit Diagnoses Diagnosis Female infertility Female infertility of unspecified origin Female infertility Female infertility of unspecified origin documented in this encounter Care Teams Admissions Gate Attendant Relationship Specialty Start Date End Date Haritha Kaur MD [address] [place] [address] PCP - General Internal Medicine 03/22/18 documented as of this encounter
--- OUTSIDE RECORDS SUMMARY | 2024-04-23 00:49 | XMS_ITS | Clinical Summary ---
Author Organization [facility] Address [address] [place] [address] Care Team Providers Care Eligibility Manager Name Role Phone Haritha Kaur MD Primary [...] Patient Date of Phone Billing Address Personal/Family [address] [place] [address] [place] [address] FFS Care Teams Eligibility Manager Relationship Specialty Start Date End Date Haritha Kaur MD [address] [place] [address] PCP - General Internal Medicine 03/22/18
--- OUTSIDE RECORDS SUMMARY | 2024-04-23 00:49 | XMS_ITS | Encounter Summary ---
Author Organization [facility] Address [address] [place] [address] Care Team Providers Care Padder Name Role Phone Haritha Kaur MD Primary Care Provider Encounter Details Date Type Department Care Team ([facility] st Contact Info) Description 03/21/2018 Orders Only [facility] SOFTBALL COACH [address] [facility] [address] [place] [address] Provider, [facility] Social History Tobacco Use Types Packs/Day [...] of this encounter Results * Due to [place] state law, this organization might not be sharing negative HIV tests. * US TRANSVAGINAL (FOR IVF USE ONLY)FC (03/22/2018 7:28 AM EST) Narrative [facility] - 03/22/2018 7:28 AM EST Study performed for the acquisition of images only. ??No professional Interpretation required. us Repsc Provider IMG US OBGYN ORDERABLES Final Re sult [facility] documented in this encounter Visit Diagnoses Diagnosis Female infertility Female infertility of unspecified origin Female infertility Female infertility of unspecified origin documented in this encounter Care Teams Padder Relationship Specialty Start Date End Date Haritha Kaur MD [address] [place] [address] PCP - General Internal Medicine 03/22/18 documented as of this encounter
--- NOTE | 2024-04-23 00:52 | PC.NURSE ---
Patient changed over into a behavioral health attire with security at bedside, belongings secured at [facility]. EKG completed, labs drawn and sent to lab for processing. Patient placed on cardiac sonographer, HR 83, sinus rhythm. Patient denies any pain. Patient denies SI/HI at present, 1:1 observer at bedside.
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
[2024-04-23 01:35] VITALS: BP 109/65; PULSE 85; RESP 22; TEMP 36.8; O2SAT 97
--- NOTE | 2024-04-23 02:04 | PC.NURSE ---
This RN spoke to Poison prevention, who recommended to complete EKG now and at 06:00 am, draw repeat labs: Mg, chem, Tylenol level, and Salicylates at 05:30 am, administer Potassium PO or IV. Dr. Ramirez notified.
[2024-04-23 02:28] LABS: Magnesium 2.3 mg/dL (1.6-2.6)
[2024-04-23] MEDS: Potassium Chloride Packet 20 MEQ PACKET 60 MEQ PO (02:28)
--- NOTE | 2024-04-23 03:56 | PC.NURSE ---
EKG at 02:[address] Ramirez.
--- NOTE | 2024-04-23 05:30 | ECG_ITS ---
Test Reason : REPEAT FOR POISON CONTROL Blood Pressure : */* mmHG Vent. Rate : 96 BPM Atrial Rate : 96 BPM P-R Int : 120 ms QRS Dur : 78 ms QT Int : 366 ms P-R-T Axes : 75 19 44 degrees QTcB Int : 462 ms Normal sinus rhythm Possible Left atrial enlargement Borderline ECG When compared with ECG of 22-Apr-2024 23:31, No significant change was found Referred By: Brianda Ramirez Electronically Signed By: Raoul Jackson
[2024-04-23 05:42] VITALS: BP 113/76; PULSE 80; RESP 26; TEMP 36.5; O2SAT 97
[2024-04-23 05:57] LABS: Acetaminophen LAB < 3 mcg/mL (<30); Anion Gap 15 (12-20); Blood Urea Nitrogen 13 mg/dL (9-16); Calcium 8.6 mg/dL (8.4-10.2); Carbon Dioxide 18 mmol/L (22-29); Chloride 115 mmol/L (96-108); Creatinine Clr Calc Pharmacy 81.9; Estimated Glomerular Filt Rate > 60; Glucose Random 92 mg/dL (60-115); Potassium 4.8 mmol/L (3.3-5.1); Sodium 143 mmol/L (135-145)
--- NOTE | 2024-04-23 06:05 | PC.NURSE ---
This RN spoke to Emerald with Poison Prevention, reviewed with Emerald rsults of zezkg, vitals, and labs-per Atul Corbin to medically clear patient.
[2024-04-23 06:12] LABS: Salicylate < 5.0 mg/dL (15-30)
[2024-04-23] MEDS: ondansetron HCL 4 MG/2 ML VIAL IVPUSH (06:50)
[2024-04-23 07:35] LABS: Appearance Urine Clear; Color Urine Yellow; Glucose Urine UA Negative (Negative); Leukocyte Esterase Urine Moderate (2+) (Negative); Nitrite Urine Negative (Negative); Specific Gravity - Urine <= 1.005 (1.005-1.025); UMIC TRIGGER UA YES; Urine Blood Negative (Negative); Urine Ketones Negative (Negative); Urine Protein Negative (Neg-Trace)
[2024-04-23 07:39] LABS: Bacteria Urine 1+ (None Seen); Hyaline Casts Urine 0-2 /LPF (0-2); RBC Urine 0-2 /HPF (0-2)
--- NOTE | 2024-04-23 08:00 | PC.NURSE ---
Assumed care of patient at 0730, patient appears to be in no apparent distress, does appear sad and withdrawn, now resting in bed
--- NOTE | 2024-04-23 10:18 | PHA.MEDREC ---
Pharmacy Consult ? Medication Reconciliation Pharmacy has reviewed the medication reconciliation done by nursing.
[2024-04-23 10:45] LABS: UPreg QC Valid YES
[2024-04-23 10:47] LABS: Urine Pregnancy NEGATIVE (NEGATIVE)
[2024-04-23 14:43] VITALS: BMI 23.3
[2024-04-23 14:44] VITALS: BP 122/80; PULSE 85; RESP 17; TEMP 36.6; O2SAT 98
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
--- NOTE | 2024-04-23 16:33 | PC.ADMIT ---
Marsha was admitted at 1355 from the ED POD on a CV with a dx of Unspecified Depressive Disorder and Alcohol Use Disorder. Pt was sent to [facility] after an intentional overdose on her fluoxetine (took 8 20mg pills), following some recent marital issues with her . Patient is A&Ox4, initially anxious when arriving to the unit, but pleasant/cooperative and stated My anxiety now is about a 4, I get really anxious when being in new places, I just need time to adjust . She denies currently feeling depressed and states My and I have been in the process of divorce which was my idea, but yesterday he told our children that he went on a date and it just got me thinking...maybe they'd be better off without me . Affect is tearful when speaking on current issues, reports having increased suicidal thoughts recently, but blacked out yesterday after drinking an entire bottle of wine and does not recall taking the pills. Tox screen negative, alcohol level 216 upon admission. Reports appetite has been decreased and she has trouble sleeping at night. Patient states her goal is to get back to a happy life and to be a family again. I've realized I don't want to go through with this divorce anymore . She denies any physical complaints, placed on 15 minute checks for safety.
[2024-04-23 20:00] VITALS: BP 106/58; PULSE 62; RESP 16; TEMP 36.8; O2SAT 98
[2024-04-23] MEDS: traZODone HCL 50 MG TABLET PO (20:36)
[2024-04-24 07:55] VITALS: BP 99/55; PULSE 73; RESP 14; TEMP 36.8; O2SAT 98
[2024-04-24] MEDS: FLUoxetine HCl 20 MG CAPSULE 40 MG PO (08:01)
[2024-04-24 08:20] LABS: Estimated Average Glucose 94 mg/dL; Hemoglobin A1C 108.0244 umol/L; Hemoglobin A1c % 4.9 % (<6.0); Total Hemoglobin (HGBA1C) 3642.7768 umol/L
[2024-04-24 09:09] LABS: Cholesterol 158 mg/dL (<200); HDL Cholesterol 75 mg/dL (>40); LDL Cholesterol Calculated 69 mg/dL (<100); Triglycerides 71 mg/dL (<150)
[2024-04-24 09:24] LABS: Free T4 (Free Thyroxine) 1.13 ng/dL (0.71-1.85); Thyroid Stimulating Hormone 1.68 uIU/mL (0.32-4.0)
[2024-04-24 09:34] LABS: Folate 12.9 ng/mL (> or = 4.0); Vitamin B12 755 pg/mL (200-900)
--- NOTE | 2024-04-24 12:32 | P.PNPSI_ITS ---
Subjective Subjective Date of Service: 04/24/24 Reason For Visit: SA Interim History: pt denies any s/e from medications. reports she slept well without daytime sedation or grogginess today. asking about discharge monday, would like to have the weekend to be with her kids to let them know what is going on. planning with to try to make their marriage work. would like a psych MD Rx'er. open to considering PHP/IOP. reports incr vaginal discharge, open to BV panel, repeat UA, STI testing. per staff, slept 6-7 hours. mod dep/anx. Mental Status Exam Mental Status Exam Narrative: adequately dressed and groomed. no PMA/PMR. cooperative. speech nml rate, amount, loudness; flattened tone, nml latency. thoughts linear and logical, affect constricted, normo-intense, non-labile. mood not assessed. no SI/SIBI/HI/AVH expressed. Diagnostics Vital Signs (24Hr): Vital Signs - 24 hr 04/23/24 14:44 04/23/24 20:00 04/24/24 07:55 Temperature 97.8 F 98.2 F 98.2 F Pulse Rate 85 62 73 Respiratory Rate 17 16 14 Blood Pressure 122/80 106/58 L 99/55 L Pulse Oximetry 98 98 98 Oxygen Delivery Method Room Air Room Air Room Air BMI result Body Mass Index 23.3 Labs 04/22/24 23:46 04/23/24 05:29 Labs: Laboratory Results - last 48 hr 04/22/24 04/23/24 04/23/24 23:46 05:29 23:46 WBC 7.3 RBC 4.64 Hgb 14.4 Hct 41.1 MCV 88.6 MCH 31.0 MCHC 35.0 RDW 12.5 Plt Count 207 MPV 9.6 Immature Gran % (Auto) 0.1 Neut % (Auto) 70.4 Lymph % (Auto) 22.9 Park % (Auto) 5.4 Eos % (Auto) 0.4 Baso % (Auto) 0.8 Lymph # (Auto) 1.7 Park # (Auto) 0.4 Eos # (Auto) 0.0 Baso # (Auto) 0.1 Abs Immat Gran (auto) 0.01 Absolute Neuts (auto) 5.1 Absolute Nucleated RBC 0.000 Nucleated RBC % (auto) 0.0 Sodium 143 143 Potassium 3.3 D 4.8 D Chloride 111 H 115 H Carbon Dioxide 22 18 L Anion Gap 13 15 BUN 13 13 Creatinine 0.80 0.76 Estim Creat Clear Calc 77.8 81.9 Estimated GFR > 60 > 60 Random Glucose 109 92 Estimat Average Glucose Hemoglobin A1c % Calcium 9.1 8.6 Magnesium 2.3 2.0 Total Bilirubin 0.3 AST 20 ALT 14 Alkaline Phosphatase 57 Troponin I High Sens < 2.7 Total Protein 8.1 H Albumin 4.7 Triglycerides Cholesterol LDL Cholesterol, Calc HDL Cholesterol Vitamin B12 Folate TSH Free T4 Urine Color Yellow Urine Appearance Clear Urine pH 6.0 Ur Specific [place] <= 1.005 Urine Protein Negative Urine Glucose (UA) Negative Urine Ketones Negative Urine Blood Negative Urine Nitrite Negative Ur Leukocyte Esterase Moderate (2+) H Urine RBC 0-2 Urine WBC 11-20 H Ur Squamous Epith Cells 3-5 Urine Bacteria 1+ Hyaline Casts 0-2 Urine Test NEGATIVE Salicylates < 5.0 L < 5.0 L Urine Opiates Screen Not Detected Ur Buprenorphine Scrn Not Detected Ur Oxycodone Screen Not Detected Urine Methadone Screen Not Detected Urine Fentanyl Screen Not Detected Acetaminophen < 3 < 3 Ur Barbiturates Screen Not Detected Ur Phencyclidine Scrn Not Detected Ur Amphetamines Screen Not Detected U Benzodiazepines Scrn Not Detected Urine Cocaine Screen Not Detected U Marijuana (THC) Screen Not Detected Ethyl Alcohol 216 04/24/24 07:51 WBC RBC Hgb Hct MCV MCH MCHC RDW Plt Count MPV Immature Gran % (Auto) Neut % (Auto) Lymph % (Auto) Park % (Auto) Eos % (Auto) Baso % (Auto) Lymph # (Auto) [place] # (Auto) Eos # (Auto) Baso # (Auto) Abs Immat Gran (auto) Absolute Neuts (auto) Absolute Nucleated RBC Nucleated RBC % (auto) Sodium Potassium Chloride Carbon Dioxide Anion Gap BUN Creatinine Estim Creat Clear Calc Estimated GFR Random Glucose Estimat Average Glucose 94 Hemoglobin A1c % 4.9 Calcium Magnesium Total Bilirubin AST ALT Alkaline Phosphatase Troponin I High Sens Total Protein Albumin Triglycerides 71 Cholesterol 158 LDL Cholesterol, Calc 69 HDL Cholesterol 75 Vitamin B12 755 Folate 12.9 TSH 1.68 Free T4 1.13 Urine Color Urine Appearance Urine pH Ur Specific [place] Urine Protein Urine Glucose (UA) Urine Ketones Urine Blood Urine Nitrite Ur Leukocyte Esterase Urine RBC Urine WBC Ur Squamous Epith Cells Urine Bacteria Hyaline Casts Urine Test Salicylates Urine Opiates Screen Ur Buprenorphine Scrn Ur Oxycodone Screen Urine Methadone Screen Urine Fentanyl Screen Acetaminophen Ur Barbiturates Screen Ur Phencyclidine Scrn Ur Amphetamines Screen U Benzodiazepines Scrn Urine Cocaine Screen U Marijuana (THC) Screen Ethyl Alcohol Medications Medications Current Medications Acetaminophen (Acetaminophen 325 Mg Tablet) 650 mg PO Q6H PRN PRN Reason: Headache/Pain, Scale 1-10 Al Hydroxide/Mg Hydroxide (Magnesium Hydrox/Alum Hydrox 30 Ml Oral.Susp) 30 ml PO Q6H PRN PRN Reason: Heartburn/Nausea Fluoxetine HCl (Fluoxetine Hcl 20 Mg Capsule) 40 mg PO DAILY [facility] Last Admin: 04/24/24 08:01 Dose: 40 mg Hydroxyzine HCl (Hydroxyzine Hcl 25 Mg Tablet) 25 mg PO Q6H PRN PRN Reason: mild anxiety Magnesium Hydroxide (Milk Of Magnesia 30 Ml Oral.Susp) 30 ml PO DAILY PRN PRN Reason: Constipation Nicotine Polacrilex (Nicotine Polacrilex 2 Mg Gum) 4 mg BUCCAL Q2H PRN PRN Reason: Nicotine Cravings Non-Formulary Medication (Norethindrone (Contraceptive)) 0.35 mg PO DAILY [facility] Trazodone HCl (Trazodone Hcl 50 Mg Tablet) 50 mg PO BEDTIME PRN PRN Reason: Insomnia Trazodone HCl (Trazodone Hcl 50 Mg Tablet) 50 mg PO BEDTIME [facility] Last Admin: 04/23/24 20:36 Dose: 50 mg Allergies Allergies Allergy/AdvReac Type Severity Reaction Status Date / Time No Known Allergies Allergy Verified 04/22/24 23:12 N.K.D.A. Allergy Unknown Unknown Uncoded 04/22/24 23:12 Assessment & Plan Assessment & Plan (1) Deliberate medication overdose: Status: Acute Code(s): T50.902A - Poisoning by unspecified drugs, medicaments and biological substances, intentional self-harm, initial encounter (2) Adjustment disorder with mixed disturbance of emotions and conduct: Status: Acute Code(s): F43.25 - Adjustment disorder with mixed disturbance of emotions and conduct (3) Depressive disorder: Status: Acute Code(s): F32.A - Depression, unspecified Plan 04/23: increase fluoxetine to 40 mg daily. DC buspirone 7.5 mg BID. add trazodone 50 mg QHS with repeat PRN. T/C PHP/IOP. referral for psych MD at discharge. 04/24: reports she is taking advantage of opportunity to attend groups, clear her head, communicate with family members. no side effects from meds. slept well. continue current mgmt. Reason for continued inpatient stay Substantial Risk for: inability to function and rapid decompensation Time Spent With Patient Time: Total time managing care of this patient today __25__ minutes.
[2024-04-24 15:29] LABS: Appearance Urine Cloudy; Color Urine Yellow; Glucose Urine UA Negative (Negative); Leukocyte Esterase Urine Moderate (2+) (Negative); Nitrite Urine Negative (Negative); PH 5.5 (5.0-9.0); Specific Gravity - Urine >= 1.030 (1.005-1.025); UMIC TRIGGER UACC YES; Urine Blood Negative (Negative); Urine Ketones Trace mg/dL (Negative); Urine Protein Negative (Neg-Trace)
[2024-04-24 15:33] LABS: Bacteria Urine 4+ (None Seen); Hyaline Casts Urine 0-2 /LPF (0-2); RBC Urine 0-2 /HPF (0-2); UACC Culture Trigger YES
[2024-04-24 17:18] LABS: Bacterial Vaginosis PCR POSITIVE (Negative); Candida Group PCR NOT DETECTED (Not Detect); Candida glab krusei PCR NOT DETECTED (Not Detect); Trichomonas vaginalis PCR NOT DETECTED (Not Detect)
[2024-04-24 17:52] LABS: CT PCR NOT DETECTED (Not Detect.); NG PCR NOT DETECTED (Not Detect.)
[2024-04-24 19:48] VITALS: BP 110/59; PULSE 66; RESP 16; TEMP 36.8; O2SAT 95
[2024-04-24] MEDS: traZODone HCL 50 MG TABLET PO (20:33)
[2024-04-24] MEDS: metroNIDAZOLE 500 MG TABLET PO (20:33)
[2024-04-25 07:00] VITALS: BMI 24.0
[2024-04-25 07:40] VITALS: BP 103/71; PULSE 83; RESP 16; TEMP 37.1; O2SAT 96
[2024-04-25] MEDS: metroNIDAZOLE 500 MG TABLET PO ×2 (09:11→21:31)
[2024-04-25] MEDS: FLUoxetine HCl 20 MG CAPSULE 40 MG PO (09:11)
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
[2024-04-25 19:10] VITALS: BP 100/56; PULSE 65; RESP 16; TEMP 36.9; O2SAT 99
[2024-04-25] MEDS: traZODone HCL 50 MG TABLET PO (21:31)
[2024-04-26 07:45] VITALS: BP 106/70; PULSE 82; RESP 16; TEMP 37; O2SAT 97
[2024-04-26] MEDS: FLUoxetine HCl 20 MG CAPSULE 40 MG PO (08:48)
[2024-04-26] MEDS: metroNIDAZOLE 500 MG TABLET PO (08:49)
== END 2024-04-26 11:17 | disposition home or self-care (01) | DRG 755 ==
LOC: HO.ED 04-23 07:31 → HO.PADLT16 04-23 13:00
PROVIDERS: Admitting Provider Psychiatry & Neurology Psychiatry; Emergency Provider Emergency Medicine; Visit Provider Psychiatry & Neurology Psychiatry
DX: F43.25 Adjustment disorder with mixed disturbance of emotions and conduct (principal); N76.0 Acute vaginitis; T43.222A Poisoning by selective serotonin reuptake inhibitors, intentional self-harm, initial encounter; Z87.891 Personal history of nicotine dependence; Z79.899 Other long term (current) drug therapy
CPT/HCPCS: 36415; 80048; 80053; 80061; 80143; 80179; 80307; 81001; 81003; 81025; 81515; 82607; 82746; 83036; 83735; 84439; 84443; 84484; 85025; 87086; 87491; 87591; 93005; 99285; J2405; S9485

== ENCOUNTER → 2024-04-22 23:24 | Outpatient (BNV) | payer BC, SELFPAY | PROVIDERS: Emergency Provider Emergency Medicine; Visit Provider Internal Medicine Cardiovascular Disease | DX: R94.31 Abnormal electrocardiogram [ECG] [EKG] (principal); T50.901A Poisoning by unspecified drugs, medicaments and biological substances, accidental (unintentional), initial encounter | CPT/HCPCS: 93010 ==

== ENCOUNTER → 2024-04-23 05:30 | Outpatient (BNV) | payer BC, SELFPAY | PROVIDERS: Emergency Provider Emergency Medicine; Visit Provider Internal Medicine Cardiovascular Disease | DX: Z13.6 Encounter for screening for cardiovascular disorders (principal) | CPT/HCPCS: 93010 ==

== ENCOUNTER → 2024-04-23 12:48 | Outpatient (BNV) | payer BC, SELFPAY | PROVIDERS: Admitting Provider Psychiatry & Neurology Psychiatry; Emergency Provider Emergency Medicine; Visit Provider Psychiatry & Neurology Psychiatry | DX: F32.2 Major depressive disorder, single episode, severe without psychotic features (principal); T50.902A Poisoning by unspecified drugs, medicaments and biological substances, intentional self-harm, initial encounter; F43.25 Adjustment disorder with mixed disturbance of emotions and conduct | CPT/HCPCS: 90792; 99231; 99232; 99239 ==

== ENCOUNTER 2024-05-10 15:21 | Outpatient (AMB) | payer BC, SELFPAY ==
--- NOTE | 2024-05-10 15:25 | A.OFFPC_ITS ---
Vital Signs 05/10/24 15:34 Height 5 ft 1 in Weight 129 lb 8 oz BMI 24.5 BP 110/62 Blood Pressure Location Rt brachial Position Sitting Respiration 18 Pulse 58 Pulse Source Pulse Oximeter Temp 97.9 F Temp Source Oral Pulse Oximetry (%) 98 Intake Visit Reasons: HDF/hmc/depressive/od/DC 04/26/24 Intake Note: Marsha presents in the office today for follow up to her inpatient discharge on 04.26.2024 Oracle Database Consultant Required: No Allergies No Known Allergies Allergy (Verified 05/10/24 15:28) N.K.D.A. Allergy (Unknown, Uncoded 05/10/24 15:28) Unknown Tobacco use date assessed: 05/10/24 Dental Screening Dental Screen Date: 05/10/24 Did you have a dental visit in the last 12 months?: Yes Did you have a dental problem in the last 6 months where you did not have access to dental care?: No Was dental information given to patient?: Patient has dentist HPI HPI Comments History of Present Illness Details 38-year-old female presents for hospital discharge follow-up. She was evaluated and treated at [facility] on 04/23/2024 for intentional overdose with wine and multiple capsules of fluoxetine. The overdose was related to marital issues; brought his girlfriend into the home and introduced her to the children. She was admitted to inpatient psychiatry and was discharged on 04/26/2024. Upon discharge, fluoxetine was increased to 40 mg daily and trazodone 50 mg at bedtime was prescribed. Buspirone was discontinued. She notes that her situation has significantly improved since she was recently discharged from inpatient Psychiatry. She has new outlook and new goals. She has been exercising routinely. She denies anxiety or depressive symptoms. She denies SI/HI or AVH. She takes trazodone 25 mg as needed at bedtime. She has an appointment with [facility] in 06/06/2024. [facility] Medical History No pertinent past medical history Surgical History No pertinent past surgical history Family History Other Mental health disorder Substance abuse Social History (Updated 05/10/24 @ 15:31 by Iqra Mello MA) Household Members: Family and Children Housing: House Do you presently have visiting nurse or other home services: No Alcohol intake: former Patient Tobacco Use Status: Former Tobacco user Tobacco use type: Cigarette Cigarette Packs Per Day: 0.2 Cigarettes Per Day: 5 Years Smoked: .5 e-Cigarette/Vaping Use: Never Used service: No Current occupational status: employed 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 Current occupational exposures/hazards: No Sexual orientation: Straight/Heterosexual Cognitive needs: No Hearing needs: No Vision needs: No Female Reproductive History Menstrual Age of Menarche: 15 Questionnaire PHQ-9 Over the last 2 weeks, how often have you been bothered by any of the following problems? 1. Little interest or pleasure in doing things: not at all 2. Feeling down, depressed, or hopeless: not at all 3. Trouble falling or staying asleep, or sleeping too much: not at all 4. Feeling tired or having little energy: several days 5. Poor appetite or overeating: not at all 6. Feeling bad about yourself - or that you are a failure or have let yourself or your family down: not at all 7. Trouble concentrating on things, such as reading the newspaper or watching television: not at all 8. Moving or speaking so slowly that other people could have noticed. Or the opposite - being so fidgety or restless that you have been moving around a lot more than usual: not at all 9. Thoughts that you would be better off or of hurting yourself in some way: not at all Total score: 1 Depression Screening Interpretation: Negative Depression Screening Done: Yes 99474 - PHQ-9 Billing: Patient declined-do not bill Source: Developed by Drs. Iban Potter, Geeta Chan, Jean Claude Richardson and colleagues, with an educational facundo from [employer]. Thrive Questionnaire Date Thrive assessed: 05/10/24 I am a: Patient What is your living situation today?: I have a steady place to live Within the past 12 months, did the food you bought not last and you didn't have the money to get more?: Never true Within the past 12 months, did you worry whether your food would run out before you got money to buy more?: Never true Do you have trouble paying for medicines?: No Do you have trouble getting transportation to medical appointments?: No Do you have trouble paying your heating and electricity bill?: No Do you have trouble taking care of your child, family member or friend?: No Do you have trouble with day-to-day activities such as bathing, preparing meals, shopping, managing finances, etc.?: No Are you currently unemployed and looking for a job?: No Are you interested in more education?: No Please select the resources that you would like help with: None Currently or been in a relationship where the following occur: I choose not to answer THRIVE Score: 0 PEE-7 AMB Questionnaire PEE-7 Date PEE - 7 assessed: 05/10/24 Feeling nervous, anxious, or on edge: 1 = Several days Not being able to stop or control worryin = Not at all Worrying too much about different things: 1 = Several days Trouble relaxin = Not at all Being so restless that it is hard to sit still: 0 = Not at all Becoming easily annoyed or irritable: 0 = Not at all Feeling afraid as if something awful might happen: 0 = Not at all Total PEE-7 score (0-4 normal; 5-9 mild; 10-14 moderate; 15-21 severe): 2 Source: Developed by Drs. Iban Potter, Geeta Chan, Jean Claude Richardson and colleagues, with an educational facundo from [employer]. PEE-7 Assessment Billing PEE-7 Assessment Tool: PEE-7 Assessment 07592 Review of Systems Const Details: Const Denies chills, Denies fatigue, Denies fever(s), Denies headache(s) and Denies weakness ENT Denies dizziness and Denies headache(s) Card Denies chest pain, Denies lightheadedness, Denies dyspnea and Denies other (Palpitations) Resp Denies cough, Denies dyspnea, Denies wheezing and Denies other ( shortness of breath) GI Denies abdominal pain, Denies melena, Denies hematochezia, Denies change in bowel habits, Denies dyspepsia and Denies nausea Denies hematuria and Denies dysuria Musc Denies abnormal gait, Denies myalgias, Denies arthralgias, Denies numbness and Denies tingling Skin/Breast Denies rash, Denies unusual bruising and Denies wounds Neuro Denies abnormal gait, Denies dizziness, Denies headache(s), Denies memory loss, Denies numbness, Denies Sensory deficit (Neuro), Denies tingling and Denies weakness Psych Denies anxiety, Denies depression, Denies memory loss Endo Denies cold intolerance, Denies fatigue, Denies heat intolerance, Denies polydipsia and Denies polyuria Aller/Immun Denies wheezing Physical exam (Primary Care) Vital Signs: Last Vital Signs Temp 97.9 F 05/10/24 15:34 Pulse 58 05/10/24 15:34 BP 110/62 05/10/24 15:34 Pulse Ox 98 05/10/24 15:34 BMI result Body Mass Index 24.5 Tobacco/Smoking Status: Tobacco use Status Tobacco use date assessed 05/10/24 05/10/24 15:38 Patient Tobacco Use Status Former Tobacco user 05/10/24 15:31 Tobacco use type Cigarette 05/10/24 15:31 e-Cigarette/Vaping Use Never Used 05/10/24 15:31 PHQ-9: PHQ-9 Score PHQ-9: Total score 1 05/10/24 15:38 Depression Screening Interpretation: Negative Thrive Assessment: Date of Thrive Assessment Date Thrive assessed 05/10/24 05/10/24 15:38 Currently or been in a relationship where the following occur: I choose not to answer Const Other: General: no acute distress and well developed Nutritional Appearance: well nourished Orientation/consciousness: patient oriented x3 HENMT Head: Yes normocephalic and Yes atraumatic Eyes General: appearance normal, both eyes and all related structures Pupils: Equal, round and reactive pupils present EOM: EOMs intact bilaterally Resp Effort & Inspection: normal respiratory effort Auscultation: clear to auscultation bilaterally Cardio Rate: regular rate Rhythm: regular rhythm Heart sounds: S1 normal heart sound present, S2 normal heart sound present, no gallops, no murmurs and no rubs GI Palpation (GI): No Abdominal aortic bruit present, Soft to palpation, nontender, No hepatosplenomegaly present and No Rebound tenderness present Auscultation: normal bowel sounds General: Yes no CVA tenderness Back/Spine/Pelvis Back: no CVA tenderness Cervical Spine: cervical ROM normal and No Cervical spine tenderness Thoracic/Lumbar Spine: thoraco-lumbar ROM normal, No pain with thoraco-lumbar ROM, No thoracic spinal tenderness and No lumbar spinal tenderness Extrem General: Yes normal to inspection, No edema and No calf tenderness Skin General: warm and dry. Normal skin color. Normal skin turgor Neuro General: patient oriented x3, gait normal and no focal neuro deficit Cranial nerves: Yes Equal, round and reactive pupils present Cognition (Neuro): normal cognition Gait exam (Neuro): Normal gait present Sensory Exam: No Sensory deficit (Neuro) Psych Appearance: grossly normal Affect: normal affect Attitude: cooperative Thought process: Normal thought process present Coding Level of Care Code Est Pt Level 3 (97838) Diagnoses Anxiety and depression F41.9; F32.A Adjustment disorder with mixed disturbance of emotions and conduct F43.25 Additional Codes PEE-7 Assessment Billing - PEE-7 Assessment Tool: PEE-7 Assessment 49240 ([id number]) Assessment & Plan Assessment & Plan (1) Anxiety and depression: Code(s): F41.9 - Anxiety disorder, unspecified; F32.A - Depression, unspecified Category: Medical Plan: Controlled anxiety and depressive symptoms. Her saturation as improve since her recent discharge from inpatient Psychiatry. She has a new outlook and goals. PHQ-9 and PEE-7 scores are normal. Continue current treatment regimen. Follow-up with Psychiatry as planned. Follow-up for an extended physical exam on or after 06/15/2024. Return sooner with symptoms or concerns. Verbalized understanding and agreed with treatment plan. (2) Adjustment disorder with mixed disturbance of emotions and conduct: Code(s): F43.25 - Adjustment disorder with mixed disturbance of emotions and conduct Category: Medical Plan: Plan as above.
[2024-05-10 15:34] VITALS: BP 110/62; PULSE 58; RESP 18; TEMP 36.6; O2SAT 98; BMI 24.5
--- OUTSIDE RECORDS SUMMARY | 2024-05-10 16:38 | XMS_ITS | Encounter Summary ---
Author Organization [facility] Address [address] [place] [address] Care Team Providers Care Rn Document Improvement Name Role Phone Haritha Kaur MD Primary Care Provider Encounter Details Date Type Department Care Team ([facility] st Contact Info) Description 03/21/2018 Orders Only [facility] MEDICAL IMAGING TECHNOLOGIST [address] [facility] [address] [place] [address] Provider, [facility] Social History Tobacco Use Types Packs/Day Years [...] of this encounter Results * Due to [place] state law, this organization might not be sharing negative HIV tests. * US TRANSVAGINAL (FOR IVF USE ONLY)FC (03/22/2018 7:28 AM EST) Narrative [facility] - 03/22/2018 7:28 AM EST Study performed for the acquisition of images only. ??No professional Interpretation required. us Repsc Provider IMG US OBGYN ORDERABLES Final Re sult [facility] documented in this encounter Visit Diagnoses Diagnosis Female infertility Female infertility of unspecified origin Female infertility Female infertility of unspecified origin documented in this encounter Care Teams Rn Document Improvement Relationship Specialty Start Date End Date Haritha Kaur MD [address] [place] [address] PCP - General Internal Medicine 03/22/18 documented as of this encounter
--- OUTSIDE RECORDS SUMMARY | 2024-05-10 16:38 | XMS_ITS | Encounter Summary ---
Author Organization [facility] Address [address] [place] [address] Care Team Providers Care Principal Law Clerk Name Role Phone Haritha Kaur MD Primary Care Provider Encounter Details Date Type Department Care Team ([facility] st Contact Info) Description 05/17/2018 Orders Only [facility] CRAYON GRADER [address] [facility] [address] [place] [address] Provider, [facility] Social History Tobacco Use Types Packs/Day Years [...] of this encounter Results * Due to [place] state law, this organization might not be sharing negative HIV tests. * US TRANSVAGINAL (FOR IVF USE ONLY)FC (05/22/2018 7:26 AM EDT) Narrative [facility] - 05/22/2018 7:27 AM EDT Study performed for the acquisition of images only. ??No professional Interpretation required. us Repsc Provider IMG US OBGYN ORDERABLES Final Re sult [facility] documented in this encounter Visit Diagnoses Diagnosis Female infertility Female infertility of unspecified origin Female infertility Female infertility of unspecified origin documented in this encounter Care Teams Principal Law Clerk Relationship Specialty Start Date End Date Haritha Kaur MD [address] [place] [address] PCP - General Internal Medicine 03/22/18 documented as of this encounter
--- OUTSIDE RECORDS SUMMARY | 2024-05-10 16:38 | XMS_ITS | Clinical Summary ---
Author Organization [facility] Address [address] [place] [address] Care Team Providers Care Plant Chief Name Role Phone Haritha Kaur MD Primary [...] Patient Date of Phone Billing Address Personal/Family [address] [place] [address] [place] [address] FFS Care Teams Plant Chief Relationship Specialty Start Date End Date Haritha Kaur MD [address] [place] [address] PCP - General Internal Medicine 03/22/18
== END 2024-05-10 16:01 | disposition home or self-care (01) ==
LOC: HO.HMCFM 15:22
PROVIDERS: PCP Nurse Practitioner Family; Visit Provider Nurse Practitioner Family
DX: F41.9 Anxiety disorder, unspecified (principal); F32.A Depression, unspecified; F43.25 Adjustment disorder with mixed disturbance of emotions and conduct

== ENCOUNTER → 2024-05-10 15:21 | Outpatient (BNVA) | payer BC, SELFPAY | PROVIDERS: PCP Nurse Practitioner Family; Visit Provider Nurse Practitioner Family | DX: F41.9 Anxiety disorder, unspecified (principal); F32.A Depression, unspecified; F43.25 Adjustment disorder with mixed disturbance of emotions and conduct | CPT/HCPCS: 96127 ==